=== PATIENT | female | born 1980 | race Caucasian/White ===

== ENCOUNTER 2023-03-13 01:11 | Emergency (ER) | payer OTHER, SELFPAY ==
--- NOTE | ~2023-03-13 | XR_ITS ---
EXAMINATION: XR KNEE, RIGHT CLINICAL INFORMATION: Pain. COMPARISON: None available. TECHNIQUE: Four views of the right knee. FINDINGS: The bone mineralization is normal. There is mild to moderate medial and mild lateral degenerative change with loss of joint space, subchondral sclerosis and osteophyte formation. There is no fracture. There is no joint effusion. The soft tissues are unremarkable. XR/XR knee RT 4V IMPRESSION: Mild to moderate medial and mild lateral knee degenerative change. No acute osseous abnormality.
[2023-03-13 01:12] VITALS: BP 136/85; PULSE 80; RESP 16; TEMP 36.4; O2SAT 100; BMI 46.6
[2023-03-13 01:33] VITALS: BP 128/78; PULSE 87; RESP 15; TEMP 36.7; O2SAT 100
--- NOTE | 2023-03-13 01:41 | ED_ITS ---
HPI - Extremity Problem General Chief complaint: Extremity Injury, Lower Stated complaint: Right knee pain Time Seen by Provider: 03/13/23 01:39 Source: patient Mode of arrival: ambulatory Limitations: no limitations History of Present Illness HPI Narrative: Patient obese no history of arthritis noticed pain in the right knee for last 3 days no trauma no significant swelling no other joint involvement no fever or chills Related Data Previous Rx's Medication Instructions Recorded oxycodone-acetaminophen 5 mg-325 1 tab PO Q6H PRN pain #20 tabs 03/13/23 mg tablet (Percocet) Allergies Allergy/AdvReac Type Severity Reaction Status Date / Time codeine [CODEINE] Allergy Unknown RASH Verified 03/13/23 01:52 tramadol AdvReac Anxiety Verified 03/13/23 01:52 From VICODIN Allergy Unknown ANXIETY Uncoded 03/13/23 01:52 Review of Systems 2 Review of Systems: Yes all other systems are reviewed and are negative PMFSH Social History Social History Alcohol intake: never Smoked in Last 30 Days: No Use of substances other than those prescribed or required for medical reasons: No Any prior treatment program specific to substance use: No Advance Directives: No Advance Directives Information Provided: No Patient : No Physical Exam 2 Vital Signs: Vital Signs: Last Vital Signs Temp 98.0 F 03/13/23 01:33 Pulse 87 03/13/23 01:33 Resp 15 03/13/23 01:33 BP 128/78 03/13/23 01:33 Pulse Ox 100 03/13/23 01:33 O2 Del Method Room Air 03/13/23 01:33 BMI result Body Mass Index 46.6 Extrem: Knee images: 1. Diffuse tenderness with mild effusion anterior drawer sign negative Jorge sign negative good range of movement Medications Administered Discontinued Medications Generic Name Dose Route Start Last Admin Trade Name Freq PRN Reason Stop Dose Admin Oxycodone HCl 10 mg 03/13/23 01:48 03/13/23 02:02 Oxycodone Hcl Immed Release 5 Mg Tablet PO 03/13/23 01:49 10 mg ONCE ONE Administration Medical Decision Making Differential Diagnosis Differential Diagnoses: The differential diagnosis associated with the presentation includes Arthritis/internal derangement of right knee Independent Interpretation I performed an independent interpretation of an: Plain X-Ray Radiology Impression Discussion of test interpretation with radiology: I have reviewed the radiologist's reading. Discharge Plan Discharge Clinical Impression: Strain of right knee Patient Disposition: Home, Self-Care Instructions: Knee Pain (ED) Additional Instructions: PARAS wrap for support Oxycodone for pain Avoid going on stairs Follow with PCP if not better Prescriptions: New oxycodone-acetaminophen [Percocet] 5-325 mg tablet 1 tab PO Q6H PRN (Reason: pain) Qty: 20 0RF Rx Instructions: Partial Fill upon patient request. Interventions: ED Discharge Assessment Last Done: 03/13/23 02:17 Discharge Date/Time: 03/13/23 02:00
[2023-03-13] MEDS: oxyCODONE HCl Immed Release 5 MG TABLET 10 MG PO (02:02)
== END 2023-03-13 02:00 | disposition home or self-care (01) ==
LOC: HO.ED 01:57
PROVIDERS: Emergency Provider Internal Medicine
DX: S86.111A Strain of other muscle(s) and tendon(s) of posterior muscle group at lower leg level, right leg, initial encounter (principal); X58.XXXA Exposure to other specified factors, initial encounter; Y93.9 Activity, unspecified; Y92.9 Unspecified place or not applicable; Y99.9 Unspecified external cause status
CPT/HCPCS: 73564; 99283; 99284

== ENCOUNTER 2023-04-03 21:40 | Emergency (ER) | payer OTHER, SELFPAY ==
--- NOTE | ~2023-04-03 | XR_ITS ---
EXAMINATION: XR KNEE, RIGHT CLINICAL INFORMATION: Pain, fall. COMPARISON: Radiograph right knee 03/13/2023. TECHNIQUE: Four views of the right knee. FINDINGS: No acute fracture or subluxation. Mild tricompartmental degenerative changes with joint space narrowing, subcortical sclerosis and small marginal osteophytes. No chondrocalcinosis. Small joint effusion, new compared to 03/13/2023. XR/XR knee RT 2V IMPRESSION: 1. No acute fracture or subluxation. 2. Mild tricompartmental degenerative changes. 3. New small joint effusion.
[2023-04-03 21:56] VITALS: BP 151/102; PULSE 76; RESP 18; TEMP 36.3; O2SAT 100; BMI 49.9
[2023-04-03 22:24] VITALS: BP 149/82; PULSE 80; RESP 18; O2SAT 100
--- NOTE | 2023-04-03 22:26 | ED.LOWEXIN ---
HPI - Extremity Injury (Lower) General Chief Complaint: Extremity Injury, Lower Stated Complaint: R knee pain, fall 2 days ago Time Seen by Provider: 04/03/23 22:25 Source: patient Mode of arrival: ambulatory Limitations: no limitations History of Present Illness HPI Narrative: patient with History of osteoarthritis obliterated tripped and fell on stairs about 4 steps 2 days ago since then complaining of pain in the right knee more than usual able to ambulate has some slight swelling no other injuries Related Data Previous Rx's Medication Instructions Recorded oxycodone-acetaminophen 5 mg-325 1 tab PO Q6H PRN pain #20 tabs 03/13/23 mg tablet (Percocet) oxycodone 5 mg tablet 5 mg PO Q6H PRN pain #30 tabs 04/03/23 Allergies Allergy/AdvReac Type Severity Reaction Status Date / Time codeine [CODEINE] Allergy Unknown RASH Verified 04/03/23 21:56 tramadol AdvReac Anxiety Verified 04/03/23 21:56 From VICODIN Allergy Unknown ANXIETY Uncoded 03/13/23 01:52 Review of Systems Review of Systems: Yes all other systems are reviewed and are negative [facility] Social History Social History Alcohol intake: never Advance Directives: No Advance Directives Information Provided: No Physical Exam Vital Signs: Vital Signs: Last Vital Signs Temp 97.4 F 04/03/23 21:56 Pulse 80 04/03/23 22:24 Resp 18 04/03/23 22:24 BP 149/82 H 04/03/23 22:24 Pulse Ox 100 04/03/23 22:24 O2 Del Method Room Air 04/03/23 22:24 BMI result Body Mass Index 49.9 Appearance: Alert. Oriented X3. No acute distress. Neck: Normal inspection. Neck supple. CVS: Normal heart rate and rhythm. Pulses normal. Respiratory: No respiratory distress. Equal air entry bilateral, Abdomen: Soft and nontender. Bowel sounds are present, Skin: Skin warm and dry. Normal skin color. Normal skin turgor. Extremities: No lower extremity edema. No calf tenderness right knee diffuse tenderness minimal effusion Jorge's sign , anterior drawer sign negative able to ambulate with slight pain Neuro: Oriented X 3. No motor deficit. Medications Administered Discontinued Medications Generic Name Dose Route Start Last Admin Trade Name Freq PRN Reason Stop Dose Admin Oxycodone HCl 10 mg 04/03/23 22:49 04/03/23 22:53 Oxycodone Hcl Immed Release 5 Mg Tablet PO 04/03/23 22:50 10 mg ONCE ONE Administration Medical Decision Making Medical Decision Making [facility] Narrative: Patient with osteoarthritis the right knee x-ray negative for any fracture , minimal effusion is wrap was applied discharge patient home on pain medication Differential Diagnosis Differential Diagnoses: The differential diagnosis associated with the presentation includes Fracture/meniscal tear/ACL tear Independent Interpretation I performed an independent interpretation of an: Plain X-Ray Radiology Impression Discussion of test interpretation with radiology: I have reviewed the radiologist's reading. Discharge Plan Discharge Clinical Impression: Strain of right knee Patient Disposition: Home, Self-Care Instructions: Knee Pain (ED) Additional Instructions: Wear the [place] wrap for support Pain medication as prescribed Follow with PCP if not better Prescriptions: New oxycodone 5 mg tablet 5 mg PO Q6H PRN (Reason: pain) Qty: 30 0RF Rx Instructions: Partial Fill upon patient request. No Action oxycodone-acetaminophen [Percocet] 5-325 mg tablet 1 tab PO Q6H PRN (Reason: pain) Qty: 20 0RF Rx Instructions: Partial Fill upon patient request. Interventions: ED Discharge Assessment Last Done: 04/03/23 23:44 Discharge Date/Time: 04/03/23 23:44
[2023-04-03] MEDS: oxyCODONE HCl Immed Release 5 MG TABLET 10 MG PO (22:53)
== END 2023-04-03 23:44 | disposition home or self-care (01) ==
PROVIDERS: Emergency Provider Internal Medicine; PCP Physician Assistant Medical
DX: S86.111A Strain of other muscle(s) and tendon(s) of posterior muscle group at lower leg level, right leg, initial encounter (principal); W17.89XA Other fall from one level to another, initial encounter; Y93.89 Activity, other specified; Y92.9 Unspecified place or not applicable; Y99.9 Unspecified external cause status
CPT/HCPCS: 73560; 99283; 99284

== ENCOUNTER 2023-08-22 00:40 | Emergency (ER) | payer OTHER, SELFPAY ==
[2023-08-22 00:42] VITALS: BP 175/102; PULSE 75; O2SAT 99
[2023-08-22 00:46] VITALS: BP 178/72; PULSE 68; RESP 18; TEMP 36.8; O2SAT 98; BMI 49.8
[2023-08-22 00:59] LABS: MANUAL DIFF FLAG NO
[2023-08-22 01:00] LABS: Basophils Percent Auto 0.5 % (0-2); Eosinophils Absolute Auto 0.2 X10*3/uL (0.0-0.4); Eosinophils Percent Auto 2.2 % (0-4); Hematocrit 35.7 % (37.0-47.0); Hemoglobin 11.9 g/dl (12.0-16.0); Imm Gran Abs Auto 0.02 X10*3/uL (0.00-0.03); Imm Gran Pct Auto 0.2 % (0.0-0.4); Lymphocytes Percent Auto 23.1 % (20-40); Mean Corpuscular HGB Conc 33.3 g/dl (31.0-35.0); Mean Corpuscular Hemoglobin 27.5 pg (27.0-33.0); Mean Corpuscular Volume 82.6 fL (80.0-98.0); Mean Platelet Volume 9.3 fL (9.4-12.3); Monocytes Absolute Auto 0.5 X10*3/uL (0.1-1.2); Monocytes Percent Auto 5.6 % (2-11); Neutrophils Absolute Auto 5.8 x10*3/uL (2.0-8.3); Neutrophils Percent Auto 68.4 % (45-73); Platelet Count 188 X10*3/uL (160-400); Red Blood Count 4.32 X10*6/uL (4.20-5.50); Red Cell Distribution Width 13.2 % (11.0-16.0); White Blood Count 8.5 X10*3/uL (4.8-10.8)
[2023-08-22 01:23] LABS: Anion Gap 12 (12-20); Blood Urea Nitrogen 22 mg/dL (9-16); Calcium 9.5 mg/dL (8.4-10.2); Carbon Dioxide 24 mmol/L (22-29); Chloride 107 mmol/L (96-108); Creatinine Clr Calc Pharmacy 119.1; Estimated Glomerular Filt Rate > 60; Glucose Random 110 mg/dL (60-115); Potassium 3.5 mmol/L (3.3-5.1); Sodium 139 mmol/L (135-145)
[2023-08-22 01:27] LABS: HCG Quantitative < 2 mIU/mL
[2023-08-22 01:49] LABS: Appearance Urine Clear; Color Urine Yellow; Glucose Urine UA Negative (Negative); Leukocyte Esterase Urine Trace (Negative); Nitrite Urine Negative (Negative); PH 5.5 (5.0-9.0); Specific Gravity - Urine >= 1.030 (1.005-1.025); UMIC TRIGGER UACC YES; Urine Blood Negative (Negative); Urine Ketones Trace mg/dL (Negative); Urine Protein Trace mg/dL (Neg-Trace)
[2023-08-22 01:52] LABS: Bacteria Urine None Seen (None Seen); Hyaline Casts Urine 0-2 /LPF (0-2); RBC Urine 0-2 /HPF (0-2); WBC Urine 0-5 /HPF (0-5)
[2023-08-22 02:00] VITALS: BP 135/69; PULSE 65; RESP 16; TEMP 36.9; O2SAT 98
--- NOTE | 2023-08-22 02:56 | ED_ITS ---
HPI - Female Genitourinary General Chief complaint: Urogenital-Female Stated complaint: back/flank pain Time Seen by Provider: 08/22/23 02:56 Source: patient Mode of arrival: ambulatory Limitations: no limitations History of Present Illness HPI Narrative: 42-year-old female who presents emergency department for evaluation of left lower back pain. She states she woke up with the pain yesterday morning around 08:00 hours. She states the pain lasted all day long. The pain was worse with movement with breathing. She describes the pain is a sharp constant pain which is 8/10 at its worst. She did take Motrin at home with no relief for pain. The patient denied fever, chills, frequency, urgency, dysuria. She has not noted any hematuria. This is a 1st episode of this type of pain. Related Data Previous Rx's ?Medication ?Instructions ?Recorded oxycodone-acetaminophen 5 mg-325 1 tab PO Q6H PRN pain #20 tabs 03/13/23 mg tablet (Percocet) oxycodone 5 mg tablet 5 mg PO Q6H PRN pain #30 tabs 04/03/23 cyclobenzaprine 10 mg tablet 10 mg PO TID PRN muscle pain or 08/22/23 spasm #20 tabs Allergies Allergy/AdvReac Type Severity Reaction Status Date / Time codeine [CODEINE] Allergy Unknown RASH Verified 08/22/23 00:48 tramadol AdvReac Anxiety Verified 08/22/23 00:48 From VICODIN Allergy Unknown ANXIETY Uncoded 08/22/23 00:48 Review of Systems 2 Review of Systems: Yes all other systems are reviewed and are negative [facility] Past Medical History [facility] Narrative: Social history: She denies tobacco, alcohol and drug use. Social History Social History Alcohol intake: never Advance Directives: No Advance Directives Information Provided: No Physical Exam 2 Vital Signs: Vital Signs: Last Vital Signs Temp 98.4 F 08/22/23 02:00 Pulse 65 08/22/23 02:00 Resp 16 08/22/23 02:00 BP 135/69 08/22/23 02:00 Pulse Ox 98 08/22/23 02:00 O2 Del Method Room Air 08/22/23 02:00 BMI result Body Mass Index 49.8 Vital signs were normal Exam: General: Awake, alert in no distress Head: Normocephalic, atraumatic EENT: PERRL, Lids normal, sclera normal, conjunctiva normal, nose normal , ears normal, throat without erythema or exudates Neck: Supple, no adenopathy Lung: breath sounds symmetric, no wheezing, rales or rhonchi Chest: symmetric movement, nontender Heart: regular rate and rhythm, normal S1, S2 no murmurs or rubs Abdomen: soft, non-tender, nondistended, normal bowel sounds Back: no vertebral tenderness, patient does have pain and spasm with palpation of her left paraspinal muscles in the lumbar area, there is no increased warmth or lesions noted in this area Extremities: no deformities, moves all extremities symmetrically Neuro: Awake, alert, oriented, normal speech, cranial nerves intact, moves all extremities symmetrically Psych: Pleasant, cooperative Medical Decision Making Medical Decision Making [facility] Narrative: 42-year-old female who presents emergency department for evaluation of left sided back pain which began yesterday morning at 08:00 hours, patient does not recall any injury. The pain is worse with movement and with breathing. Patient had no concerning systemic symptoms. Patient had initial elevated blood pressure which improved with our treatment. Physical examination did reveal tenderness palpation of her left lumbar paraspinal muscles with spasm of these muscles. Differential diagnosis: ?Includes but is not limited to musculoskeletal injury, musculoskeletal spasm, renal colic, ureteral colic, electrolyte abnormalities, anemia Following evaluation was ordered: CBC, CMP, urinalysis, quantitative beta-hCG Patient was initially treated with the following: Ibuprofen 400 mg orally, Flexeril 10 mg orally Course: 03:19 My interpretation patient's laboratory evaluation is as follows: Anemia with an H&H 11.9 and 35.7. CMP was normal. Urinalysis was positive for leukocyte esterase. Microscopic revealed 0 RBCs, 0 WBCs, no bacteria Patient's presentation physical finding laboratory evaluation is consistent with lumbar back sprain with spasm. Patient was advised to take Tylenol and ibuprofen for pain. She was also prescribed Flexeril for muscle spasm. She was given printed and verbal instructions discharged home. Admission/Observation Consideration of admission/observation: Escalation of care including admission/observation considered Lab Data [facility] Lab Attestation statement: I reviewed the patient's lab results. 08/22/23 00:56 08/22/23 00:55 Labs: Lab Results 08/22/23 08/22/23 08/22/23 Range/Units 00:55 00:56 01:43 WBC 8.5 (4.8-10.8) X10*3/uL RBC 4.32 (4.20-5.50) X10*6/uL Hgb 11.9 L (12.0-16.0) g/dl Hct 35.7 L (37.0-47.0) % MCV 82.6 (80.0-98.0) fL MCH 27.5 (27.0-33.0) pg MCHC 33.3 (31.0-35.0) g/dl RDW 13.2 (11.0-16.0) % Plt Count 188 (160-400) X10*3/uL MPV 9.3 L (9.4-12.3) fL Immature Gran % (Auto) 0.2 (0.0-0.4) % Neut % (Auto) 68.4 (45-73) % Lymph % (Auto) 23.1 (20-40) % Dawes % (Auto) 5.6 (2-11) % Eos % (Auto) 2.2 (0-4) % Baso % (Auto) 0.5 (0-2) % Lymph # (Auto) 2.0 (1.2-4.9) X10*3/uL Dawes # (Auto) 0.5 (0.1-1.2) X10*3/uL Eos # (Auto) 0.2 (0.0-0.4) X10*3/uL Baso # (Auto) 0.0 (0.0-0.2) X10*3/uL Abs Immat Gran (auto) 0.02 (0.00-0.03) X10*3/uL Absolute Neuts (auto) 5.8 (2.0-8.3) x10*3/uL Absolute Nucleated RBC 0.000 (0.0-0.012) X10*3/uL Nucleated RBC % (auto) 0.0 (0.0-0.2) /100WBC Sodium 139 (135-145) mmol/L Potassium 3.5 (3.3-5.1) mmol/L Chloride 107 (96-108) mmol/L Carbon Dioxide 24 (22-29) mmol/L Anion Gap 12 (12-20) BUN 22 H (9-16) mg/dL Creatinine 0.85 (0.5-1.4) mg/dL Estim Creat Clear Calc 119.1 Estimated GFR > 60 Random Glucose 110 (60-115) mg/dL Calcium 9.5 (8.4-10.2) mg/dL Beta HCG, Quant < 2 mIU/mL Urine Color Yellow Urine Appearance Clear Urine pH 5.5 (5.0-9.0) Ur Specific [place] >= 1.030 H (1.005-1.025) Urine Protein Trace (Neg-Trace) mg/dL Urine Glucose (UA) Negative (Negative) mg/dL Urine Ketones Trace (Negative) mg/dL Urine Blood Negative (Negative) Urine Nitrite Negative (Negative) Ur Leukocyte Esterase Trace H (Negative) Urine RBC 0-2 (0-2) /HPF Urine WBC 0-5 (0-5) /HPF Ur Squamous Epith Cells 6-10 (0-2) /HPF Urine Bacteria None Seen (None Seen) Hyaline Casts 0-2 (0-2) /LPF Prescription Management I considered prescription management with: Other (Anti spasm medication- Flexeril) Discharge Plan Discharge Clinical Impression: Lumbar paraspinal muscle spasm Patient Disposition: Home, Self-Care Instructions: Acute Low Back Pain (ED) Additional Instructions: Your blood work revealed that you had some slight anemia but otherwise was unremarkable. Your urinalysis was negative for infection, there was no white blood cells, red blood cells or bacteria in your urine which is reassuring. Your exam did reveal significant tenderness with palpation of the muscles of your lower back with spasm of these muscles as well. Take ibuprofen 200 mg pills, 2 pills every 6 hours as needed for pain or fever. Take Tylenol (acetaminophen) 500 mg pills, 2 pills every 6 hours as needed for pain or fever. Take Flexeril (cyclobenzaprine) 10 mg pills, 1 pill every 6-8 hours as needed for pain or spasm. ?This medication will make you sleepy. ?Do not drive or work while taking this medication. Follow-up with your doctor in 2 days. Please return to the emergency department if your symptoms get worse or if you develop any symptoms that are concerning to you. Prescriptions: New cyclobenzaprine 10 mg tablet 10 mg PO TID PRN (Reason: muscle pain or spasm) Qty: 20 0RF No Action oxycodone-acetaminophen [Percocet] 5-325 mg tablet 1 tab PO Q6H PRN (Reason: pain) Qty: 20 0RF Rx Instructions: Partial Fill upon patient request. oxycodone 5 mg tablet 5 mg PO Q6H PRN (Reason: pain) Qty: 30 0RF Rx Instructions: Partial Fill upon patient request. Print Language: Zimbabwean
[2023-08-22] MEDS: Cyclobenzaprine HCl 10 MG TABLET PO (03:23)
[2023-08-22] MEDS: Ibuprofen 400 MG TABLET PO (03:23)
[2023-08-22 03:28] VITALS: BP 132/68; PULSE 66; RESP 16; TEMP 36.8; O2SAT 98
== END 2023-08-22 03:28 | disposition home or self-care (01) ==
PROVIDERS: Emergency Provider Emergency Medicine Emergency Medical Services
DX: M62.830 Muscle spasm of back (principal); M54.50 Low back pain, unspecified; Z79.899 Other long term (current) drug therapy
CPT/HCPCS: 36415; 80048; 81001; 84702; 85025; 99283; 99284

== ENCOUNTER 2023-10-02 00:35 | Emergency (ER) | payer OTHER, SELFPAY ==
--- NOTE | ~2023-10-02 | XR_ITS ---
EXAMINATION: XR ANKLE, RIGHT XR FOOT, RIGHT CLINICAL INDICATION: Pain COMPARISON: None TECHNIQUE: 3 views of the right ankle. 3 views of the right foot. FINDINGS: Osseous alignment throughout the ankle and foot is anatomic. No acute fracture is seen. Plantar calcaneal spur is present. There is soft tissue swelling at the ankle. XR/XR foot RT min 3V IMPRESSION: No acute osseous findings identified in the right ankle or foot. Soft tissue swelling at the ankle.
--- NOTE | ~2023-10-02 | XR_ITS ---
EXAMINATION: XR ANKLE, RIGHT XR FOOT, RIGHT CLINICAL INDICATION: Pain COMPARISON: None TECHNIQUE: 3 views of the right ankle. 3 views of the right foot. FINDINGS: Osseous alignment throughout the ankle and foot is anatomic. No acute fracture is seen. Plantar calcaneal spur is present. There is soft tissue swelling at the ankle. XR/XR ankle RT min 3V IMPRESSION: No acute osseous findings identified in the right ankle or foot. Soft tissue swelling at the ankle.
[2023-10-02 00:47] VITALS: BP 143/90; PULSE 80; O2SAT 99
[2023-10-02 00:54] VITALS: BP 150/86; PULSE 91; RESP 16; O2SAT 98
[2023-10-02 00:57] VITALS: BMI 46.6
--- NOTE | 2023-10-02 01:00 | ED.LOWEXIN ---
HPI - Extremity Injury (Lower) General Chief Complaint: Extremity Injury, Lower Stated Complaint: right ankle foot pain Time Seen by Provider: 10/02/23 00:42 History of Present Illness HPI Narrative: Patient is a 42-year-old female presents today with having right ankle pain. Right foot pain. Attempted to take [id number] medication but to no avail. Denies any trauma. But does walk a lot. Complaining of pain that is worse with walking. No systemic complaints no significant knee pain no calf tenderness no pain in the hips. No chest pain or shortness breath currently on no medication no history of blood clots. No travel Related Data Previous Rx's ?Medication ?Instructions ?Recorded oxycodone-acetaminophen 5 mg-325 1 tab PO Q6H PRN pain #20 tabs 03/13/23 mg tablet (Percocet) oxycodone 5 mg tablet 5 mg PO Q6H PRN pain #30 tabs 04/03/23 cyclobenzaprine 10 mg tablet 10 mg PO TID PRN muscle pain or 08/22/23 spasm #20 tabs ibuprofen 400 mg tablet 400 mg PO Q6H PRN pain #20 tabs 10/02/23 Allergies Allergy/AdvReac Type Severity Reaction Status Date / Time codeine [CODEINE] Allergy Unknown RASH Verified 10/02/23 00:58 tramadol AdvReac Anxiety Verified 10/02/23 00:58 From VICODIN Allergy Unknown ANXIETY Uncoded 10/02/23 00:58 Review of Systems Review of Systems: Positive pain to the right ankle right foot Yes all other systems are reviewed and are negative [facility] Past Medical History Attestation statement: The following information was validated with the patient. Social History Social History Alcohol intake: never Advance Directives: No Advance Directives Information Provided: Yes Do you have a plan to hurt others: No Plan Physical Exam Vital Signs: Vital Signs: Last Vital Signs Pulse 91 10/02/23 00:54 Resp 16 10/02/23 00:54 BP 150/86 H 10/02/23 00:54 Pulse Ox 98 10/02/23 00:54 O2 Del Method Room Air 10/02/23 00:54 BMI result Body Mass Index 46.6 Appearance: Alert. Oriented X3. No acute distress. Eyes: Pupils equal, round and reactive to light. ENT: Pharynx normal. Neck: Normal inspection. Neck supple. No lymph nodes noted. No crepitus CVS: Normal heart rate and rhythm. Pulses normal. Normal S1 and S2 Respiratory: No respiratory distress. Breath sounds normal. No Wheezing. No rales Abdomen: Soft and nontender. No rigidity. No distention. good BS x4 Skin: Skin warm and dry. Normal skin color. Normal skin turgor. Extremities: No lower extremity edema. Neurovascular intact to all extremities. No Lacerations. No Rash. Mild pain on palpation of the right lateral malleolus. Distal pulses intact at dorsalis pedis. Pain at the base of the 5th metatarsal. There is no gross deformities noted. Neuro: Oriented X 3. No motor deficit. No sensory deficit. Moving all extermities. No slurred speech Medications Administered Discontinued Medications Generic Name Dose Route Start Last Admin Trade Name Freq PRN Reason Stop Dose Admin Acetaminophen 975 mg 10/02/23 03:28 10/02/23 03:33 Acetaminophen 325 Mg Tablet PO 10/02/23 03:29 975 mg ONCE ONE Administration Medical Decision Making Medical Decision Making [facility] Narrative: X-ray of the ankle and foot were both grossly negative for acute evidence of fracture. Question sprain. Will have patient follow-up with orthopedics on an outpatient basis. There is no fever no chills no redness no warmth on palpation there is no evidence of gross joint effusion. Patient has no fever no chills. History not consistent with having a septic joint. Will discharge patient home on Motrin. Close follow-up with orthopedics on an outpatient basis Differential Diagnosis Differential Diagnoses: The differential diagnosis associated with the presentation includes Arthritis, fracture, sprain Admission/Observation Consideration of admission/observation: Escalation of care including admission/observation considered Lab Data [facility] Lab Attestation statement: I reviewed the patient's lab results. Independent Interpretation I performed an independent interpretation of an: Plain X-Ray (X-ray of the foot and ankle are negative) Radiology Impression Discussion of test interpretation with radiology: I have reviewed the radiologist's reading. Prescription Management I considered prescription management with: Antibiotic (Not needed) Discharge Plan Discharge Clinical Impression: Ankle sprain and strain Patient Disposition: Home, Self-Care Instructions: Ankle Sprain (DC) Prescriptions: New ibuprofen 400 mg tablet 400 mg PO Q6H PRN (Reason: pain) Qty: 20 0RF No Action oxycodone-acetaminophen [Percocet] 5-325 mg tablet 1 tab PO Q6H PRN (Reason: pain) Qty: 20 0RF Rx Instructions: Partial Fill upon patient request. oxycodone 5 mg tablet 5 mg PO Q6H PRN (Reason: pain) Qty: 30 0RF Rx Instructions: Partial Fill upon patient request. cyclobenzaprine 10 mg tablet 10 mg PO TID PRN (Reason: muscle pain or spasm) Qty: 20 0RF Referrals: Lexa Roche MD [Primary Care Provider] - 10/05/23 Juan Russ MD [Physician] - 10/04/23 Print Language: Australian
--- OUTSIDE RECORDS SUMMARY | 2023-10-02 01:34 | XMS_ITS | Continuity of Care Document ---
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 Name Role Phone Deya Miner Primary Care Physician [phone] [place] [facility] Date(s): 07/20/20 - 08/25/[address] [address] Attending Physician: Petey Rodas MD Admitting Physician: Petey Rodas MD Referring Physician: Petey Rodas MD Allergies, Adverse Reactions, Alerts Substance Reaction Severity Status codeine Family history of anxiety disorder Active Vicodin Rash Active traMADol Active Immunizations Given and Recorded Vaccine Date Status Refusal Reason influenza virus vaccine, inactivated 02/27/09 Give n Medications NuLYTELY with Flavor Packs oral powder for reconstitution 240 mL, By Mouth, Daily, drink 1/2 prep at 5pm day before procedure, drink the rest 6 hrs before procedure, # 4,000 mL, 0 Refills, Maintenance, 03/26/20 8:23:00 EST, REC Powder, [facility] #[id number], Partial fill upon patient request, 240 mL By... Start Date: 03/26/20 Status: Ordered Plenvu oral powder for reconstitution See Instructions, drink every 15-30 minutes until finished., # 4,000 mL, 0 Refills, Maintenance, 03/26/20 8:23:00 EST, [facility] #[id number], Partial fill upon patient request, drink every 15-30 minutes until finished., 165, cm, 02/08/20 9:31:00... Start Date: 03/26/20 Status: Ordered rOPINIRole 0.25 mg oral tablet 0 Refills, Maintenance, 12/01/18 7:46:23 EDT Start Date: 12/01/18 Status: Ordered Soma 350 mg oral tablet 350 mg, 1, tablet, By Mouth, 3 times a day, Refills 0, Maintenance, 04/07/17 10:54:04 Start Date: 04/07/17 Status: Ordered Suprep Bowel Prep Kit oral liquid See Instructions, Complete on day before the procedure., # 354 mL, 0 Refills, Maintenance, 02/07/2010:19:00 EDT, [facility] #[id number], Complete on day before the procedure., 165, cm, :31:00 EDT, Height, 100, kg, 01/25/20 18:19:00 EDT... Start Date: 02/08/20 Status: Ordered Zofran 4 mg oral tablet 1 tablet = 4 mg, By Mouth, Every 6 hours, # 20 tablet, 0 Refills, Maintenance, 02/08/20 10:19:00 EDT, [facility] #[id number], 165, cm, 02/08/20 9:31:00 EDT, Height, 100, kg, 01/25/20 18:19:00 EDT, Dry Weight Start Date: 02/08/20 Stop Date: 02/13/20 Status: Ordered Zofran 4 mg oral tablet 1 tablet = 4 mg, By Mouth, Every 8 hours, # 12 tablet, 0 Refills, Maintenance, 04/19/20 12:15:00 EST, Tablet, [facility] #[id number], Partial fill upon patient request if the prescription is fora schedule II opioid drug., 165, cm, 04/19/20 10:13... Start Date: 04/19/20 Status: Ordered Problem List Condition Effective Dates Status Health Status Inform ant Anxiety(Confirmed) Active Body mass index 30+ - obesity(Confirmed) Active Depression(Confirmed) Active DM (diabetes mellitus)(Confirmed) Active Drug-induced constipation(Confirmed) Active Mechanical low back pain(Confirmed) Active Neck pain(Confirmed) Active Not getting enough sleep(Confirmed) Active Recurrent urinary tract infection(Confirmed) Active Social History Social History Type Response Smoking Status Never (less than 100 in lifetime) entered on: 04/19/20 Sex
--- OUTSIDE RECORDS SUMMARY | 2023-10-02 01:34 | XMS_ITS | Continuity of Care Document ---
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 Name Role Phone Lexa Roche MD Primary Care Physician Encounter [facility] Date(s): 07/18/19 - 07/28/19 [facility] [address] [place] [address]- [facility] Attending Physician: Carlos Hays Admitting Physician: AdmtrCarlos Referring Physician: Admtr Ar8 Allergies, Adverse Reactions, Alerts Substance Reaction Severity Status codeine Family history of anxiety disorder Active Vicodin Rash Active traMADol Active Immunizations Given and Recorded Vaccine Date Status Refusal Reason influenza virus vaccine, inactivated 02/27/09 Give n Medications acetaminophen/butalbital/caffeine 325 mg-50 mg-40 mg oral tablet 0 Refills, Maintenance, 12/01/18 7:46:26 EDT Start Date: 12/01/18 Status: Ordered Colace sodium 100 mg oral capsule 100 mg, 1, capsule, By Mouth, 2 times a day, PRN, with plenty of water, # 20 capsule, Refills 0, Tot. Refills 0, Maintenance, for constipation, 08/05/18 23:05:43 EDT, Print Requisition Start Date: 08/05/18 Stop Date: 08/15/18 Status: Ordered gabapentin 300 mg oral capsule 300 mg, 1, capsule, By Mouth, 3 times a day, # 30 capsule, Refills 0, Tot. Refills 0, Maintenance, 03/03/19 23:54:32 EDT, Print Requisition Start Date: 03/03/19 Status: Ordered Isibloom 0.15 mg-0.03 mg oral tablet 1 tablet, By Mouth, Daily Start Date: 08/05/18 Status: Ordered montelukast 10 mg oral tablet 10 mg, 1, tablet, By Mouth, Daily Start Date: 08/05/18 Status: Ordered rOPINIRole 0.25 mg oral tablet 0 Refills, Maintenance, 12/01/18 7:46:23 EDT Start Date: 12/01/18 Status: Ordered Soma 350 mg oral tablet 350 mg, 1, tablet, By Mouth, 3 times a day, Refills 0, Maintenance, 04/07/17 10:54:04 Start Date: 04/07/17 Status: Ordered Vestibular therapy Vestibular therapy, See Instructions, # 1 each, Refills 0, Tot. Refills 0, Maintenance, evaluation for vstibular therapy for possible BPPV, 05/25/18 10:00:12 EST, Compound Start Date: 05/25/18 Status: Ordered Zofran 4 mg oral tablet 1 tablet = 4 mg, By Mouth, Every 8 hours, PRN Nausea & Vomiting, # 10 tablet, 0 Refills, Maintenance, 09/14/18 19:45:21 EDT, Tablet Start Date: 09/14/18 Status: Ordered Zofran 4 mg oral tablet 1 tablet = 4 mg, By Mouth, Every 8 hours, PRN as needed for nausea/vomiting, # 9 tablet, 0 Refills,Maintenance, 03/21/19 12:22:38 EST, Tablet Start Date: 03/21/19 Stop Date: 03/24/19 Status: Ordered Problem List Condition Effective Dates [...] (less than 100 in lifetime) entered on: 11/19/18 Sex
--- OUTSIDE RECORDS SUMMARY | 2023-10-02 01:34 | XMS_ITS | Continuity of Care Document ---
Author Organization [facility] ter Address [address] [place] [address]- Care Team Providers Care Shampoo Person Name Role Phone Deya Miner Primary Care Physician [phone] [place] [facility] [place] 01/29/23 - 03/13/[address] [address] Attending Physician: Marine GILLIAM MD (Surgeon), [place] Admitting Physician: Marine GILLIAM MD (Surgeon), [place] Referring Physician: Marine GILLIAM MD (Surgeon), [place] Allergies, Adverse Reactions, Alerts Substance Reaction Severity Status codeine Family history of anxiety disorder Active Vicodin Rash Active traMADol Active Immunizations Given and Recorded Vaccine Date Status Refusal Reason influenza virus vaccine, inactivated 02/27/09 Give n Medications cyclobenzaprine 5 mg oral tablet 1 tablet = 5 mg, By Mouth, 3 times a day, PRN Spasm, for 7 days, DO NOT DRIVE OR OPERATE MACHINERY ON THIS MEDICATION IT MAY MAKE YOU DROWSY., # 21 tablet, 0 Refills, Acute 03/19/23 2:05:00 EST, 03/12/23 2:05:00 EST, Tablet, [id number], [place]... Start Date: 03/12/23 Stop Date: 03/19/23 Status: Ordered Problem List Condition Confirmation Course Effective Dates Status Health St atus Informant Anxiety Confirmed Active Body mass index 30+ - obesity Confirmed Active Depression Confirmed Active DM (diabetes mellitus) Confirmed Active Drug-induced constipation Confirmed Active Mechanical low back pain Confirmed Active Neck pain Confirmed Active Not getting enough sleep Confirmed Active Recurrent urinary tract infection Confirmed Active Severe obesity Confirmed Active Social History Social History Type Response Smoking Status Never (less than 100 in lifetime) entered on: 04/19/20 Sex Patient Care team information Care Team Personnel Name: Tran Lopez RN Position: [facility] RN Member Role: Primary Care Nurse Name: Rosalia Holcomb RN Position: [facility] RN Member Role: Primary Care Nurse Name: Kathie Baldwin NP Position: [facility] PCO Associate Professional Member Role: Primary Care Nurse Address: Address: [address], [place] [address]- Name: Anne Arriaga RN Position: [facility] RN Member Role: Primary Care Nurse Name: Hina Peng RN Position: [facility] RN Member Role: Primary Care Nurse Name: Deya Miner Position: [facility] Outreach Member Role: PCP Address: Address: [address] [place] [address] [address] [place] [address]- Care Team Related Persons Name: CONCHITA HOYOS Address: home [address] [place] [address] Name: LONNIE KULKARNI Address: [place] [address]
--- OUTSIDE RECORDS SUMMARY | 2023-10-02 01:34 | XMS_ITS | Continuity of Care Document ---
Author Organization [facility] ter Address [address] [place] [address]- Care Team Providers Care Lobbyist Name Role Phone Lexa Roche MD Primary Care Physician Encounter [facility] Date(s): 11/12/19 - 11/13/[address] [address]- [facility] Encounter Diagnosis Near syncope(Final) - 11/13/19 Discharge Disposition: A-D/C Home Attending Physician: Emmanuel Neely MD Admitting Physician: Emmanuel Neely MD Referring Physician: Not on Staff, Referring MD Allergies, Adverse Reactions, Alerts Substance Reaction [...] sleep(Confirmed) Active Recurrent urinary tract infection(Confirmed) Active Vital Signs Most recent to oldest [Reference Range]: 1 2 3 Weight 106.5 kg (11/13/19 8:22 AM) 106.5 kg (11/13/19 6:00 AM) 106.5 kg (11/12/19 7:32 PM) Oxygen Saturation [94-100 %] 100 % (11/13/19 8:22 AM) 100 % (11/13/19 6:31 AM) 100 % (11/13/19 6:00 AM) Pulse Rate [55-90 bpm] 60 bpm (11/13/19 8:22 AM) 65 bpm (11/13/19 6:31 AM) 69 bpm (11/13/19 6:00 AM) Blood Pressure [90-138/55-84 mm Hg] 132/76mm Hg (11/13/19 8:22 AM) 153/80mm Hg *H* (11/13/19 6:31 AM) 134/78mm Hg (11/13/19 6:00 AM) Respiratory Rate [16-30 br/min] 11 br/min *L* (11/13/19 8:22 AM) 17 br/min (11/13/19 6:31 AM) 18 br/min (11/13/19 6:00 AM) Temperature [96.8-100.4 DegF] 98.1 DegF (11/13/19 8:22 AM) 98.0 DegF (11/13/19 6:00 AM) 98.1 DegF (11/13/19 2:12 AM) Mode of Delivery (Oxygen) Room air (11/13/19 8:22 AM) Room air (11/13/19 6:31 AM) Room air (11/13/19 6:00 AM) Blood pressure sites Arm, left (11/13/19 8:22 AM) Arm, right (11/13/19 6:31 AM) Arm, right (11/13/19 6:00 AM) Temperature Route Oral (11/13/19 8:22 AM) Oral (11/13/19 6:00 AM) Oral (11/13/19 2:12 AM) Dry Weight 106.5 kg (11/13/19 8:22 AM) 106.5 kg (11/13/19 6:00 AM) 106.5 kg (11/12/19 7:32 PM) Weight Obtained Via Patient/family state d (11/12/19 7:18 PM) Dry Weight Obtained Via Patient/family s tated (11/12/19 7:18 PM) Social History Social History Type Response Smoking Status Never (less than 100 in lifetime) entered on: 11/19/18 Sex
--- OUTSIDE RECORDS SUMMARY | 2023-10-02 01:34 | XMS_ITS | Continuity of Care Document ---
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
--- OUTSIDE RECORDS SUMMARY | 2023-10-02 01:34 | XMS_ITS | Continuity of Care Document ---
Author Organization [facility] Address [address] [place] [address]- Care Team Providers Care Parent Aide Name Role Phone Lxea Roche MD Primary Care Physician [phone] Encounter [facility] [id number] Date(s): 05/10/19 - 08/17/19 [facility] [address] [place] [address] [facility] Attending Physician: Hortensia Flores MD Admitting Physician: Hortensia Flores MD Referring Physician: Lexa Roche MD Allergies, Adverse Reactions, Alerts Substance Reaction [...]
[2023-10-02] MEDS: Acetaminophen 325 MG TABLET 975 MG PO (03:33)
[2023-10-02 04:27] VITALS: BP 142/68; PULSE 89; RESP 16; TEMP 36.8; O2SAT 98
== END 2023-10-02 04:28 | disposition home or self-care (01) ==
PROVIDERS: Emergency Provider Emergency Medicine Emergency Medical Services; PCP Internal Medicine
DX: S93.401A Sprain of unspecified ligament of right ankle, initial encounter (principal); S96.911A Strain of unspecified muscle and tendon at ankle and foot level, right foot, initial encounter; X50.9XXA Other and unspecified overexertion or strenuous movements or postures, initial encounter; Y93.01 Activity, walking, marching and hiking; Y92.414 Local residential or business street as the place of occurrence of the external cause; Y99.9 Unspecified external cause status
CPT/HCPCS: 73610; 73630; 99283; 99284

== ENCOUNTER 2023-11-22 22:12 | Emergency (ER) | payer OTHER, SELFPAY ==
--- NOTE | ~2023-11-22 | XR_ITS ---
EXAMINATION: XR LEFT HIP WITH AP PELVIS CLINICAL INFORMATION: Fall. COMPARISON: CT dated 12/20/2017 TECHNIQUE: AP and frog-leg lateral views of the left hip and an AP view of the pelvis. 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 No fracture or malalignment. Hip joints appear well-preserved. Bone mineralization is normal. There is facet arthropathy in the lower lumbar spine. ID is noted in the central pelvis along surgical clips in the left hemipelvis. XR/XR hip LT w PEL1V IMPRESSION: 1. No acute fracture or malalignment in the pelvis and left hip. 2. Mild osteoarthritis in the SI joints.
--- NOTE | ~2023-11-22 | XR_ITS ---
EXAMINATION: XR ANKLE, LEFT XR FOOT, LEFT CLINICAL INFORMATION: Fall. COMPARISON: None TECHNIQUE: AP, lateral, and mortise views of the left ankle and AP, lateral, and both oblique views of the left foot. FINDINGS: LEFT ANKLE: No fracture. Alignment is anatomic. Ankle mortise is symmetric. Joint spaces are maintained. No ankle joint effusion. LEFT FOOT: No fracture. Alignment is anatomic. No erosions. Joint spaces are maintained. Moderate sized enthesopathic spur is present at the plantar fascial origin on the calcaneus. XR/XR foot LT min 3V IMPRESSION: No acute fracture or malalignment in the left ankle and foot.
--- NOTE | ~2023-11-22 | XR_ITS ---
EXAMINATION: XR ANKLE, LEFT XR FOOT, LEFT CLINICAL INFORMATION: Fall. COMPARISON: None TECHNIQUE: AP, lateral, and mortise views of the left ankle and AP, lateral, and both oblique views of the left foot. FINDINGS: LEFT ANKLE: No fracture. Alignment is anatomic. Ankle mortise is symmetric. Joint spaces are maintained. No ankle joint effusion. LEFT FOOT: No fracture. Alignment is anatomic. No erosions. Joint spaces are maintained. Moderate sized enthesopathic spur is present at the plantar fascial origin on the calcaneus. XR/XR ankle LT min 3V IMPRESSION: No acute fracture or malalignment in the left ankle and foot.
[2023-11-22 22:23] VITALS: BP 136/90; PULSE 73; RESP 18; TEMP 36.4; O2SAT 100; BMI 46.6
[2023-11-23 00:28] VITALS: BP 133/66; PULSE 57; RESP 18; TEMP 36.8; O2SAT 96
--- NOTE | 2023-11-23 00:47 | ED.LOWEXIN ---
HPI - Extremity Injury (Lower) General Chief Complaint: Extremity Injury, Lower Stated Complaint: fall, left hip pain Time Seen by Provider: 11/23/23 00:27 Source: patient Mode of arrival: ambulatory Limitations: no limitations History of Present Illness ED Provider: umu HPI Narrative: Patient apparently going upstairs taking stone or with her lost balance and fell few steps landed on her left hip complaining of pain on the lateral aspect of the left hip able to ambulate no other injuries Related Data Previous Rx's ?Medication ?Instructions ?Recorded oxycodone-acetaminophen 5 mg-325 1 tab PO Q6H PRN pain #20 tabs 03/13/23 mg tablet (Percocet) oxycodone 5 mg tablet 5 mg PO Q6H PRN pain #30 tabs 04/03/23 cyclobenzaprine 10 mg tablet 10 mg PO TID PRN muscle pain or 08/22/23 spasm #20 tabs ibuprofen 400 mg tablet 400 mg PO Q6H PRN pain #20 tabs 10/02/23 oxycodone 5 mg tablet 5 mg PO Q6H PRN pain #20 tabs 11/23/23 Allergies Allergy/AdvReac Type Severity Reaction Status Date / Time codeine [CODEINE] Allergy Unknown RASH Verified 11/22/23 22:28 tramadol AdvReac Anxiety Verified 11/22/23 22:28 From VICODIN Allergy Unknown ANXIETY Uncoded 10/02/23 00:58 Review of Systems Review of Systems: Yes all other systems are reviewed and are negative PMFSH Social History Social History Alcohol intake: never Use of substances other than those prescribed or required for medical reasons: No Advance Directives: No Advance Directives Information Provided: Yes Do you have a plan to hurt others: No Plan Patient : No Physical Exam Vital Signs: Vital Signs: Last Vital Signs Temp 98.3 F 11/23/23 01:07 Pulse 57 11/23/23 01:07 Resp 18 11/23/23 01:07 BP 133/66 11/23/23 01:07 Pulse Ox 96 11/23/23 00:28 O2 Del Method Room Air 11/23/23 00:28 BMI result Body Mass Index 46.6 Appearance: Alert. Oriented X3. No acute distress. Eyes: PERRLA, No Nystagmus ENT: Pharynx normal. Oral Mucosa moist AT NC Neck: Normal inspection. Neck supple. CVS: Normal heart rate and rhythm. Pulses normal. Respiratory: No respiratory distress. Equal air entry bilateral, Abdomen: Soft and nontender. Bowel sounds are present, Skin: Skin warm and dry. Normal skin color. Normal skin turgor. back: No spinal tenderness Extremities: No lower extremity edema. No calf tenderness tenderness left greater trochanteric area no bruising Neuro: Oriented X 3. No motor deficit. Medications Administered Discontinued Medications Generic Name Dose Route Start Last Admin Trade Name Freq PRN Reason Stop Dose Admin Oxycodone HCl 10 mg 11/23/23 00:44 11/23/23 00:55 Oxycodone Hcl Immed Release 5 Mg Tablet PO 11/23/23 00:45 10 mg ONCE ONE Administration Medical Decision Making Medical Decision Making [facility] Narrative: X-ray negative for fracture likely has contusion to the left trochanteric area patient is able to ambulate Independent Interpretation I performed an independent interpretation of an: Plain X-Ray Radiology Impression Discussion of test interpretation with radiology: I have reviewed the radiologist's reading. Discharge Plan Discharge Clinical Impression: Contusion of left hip Patient Disposition: Home, Self-Care Instructions: Hip Contusion (ED) Additional Instructions: Take pain medication as prescribed Apply ice pack Your x-rays are negative for fracture Prescriptions: New oxycodone 5 mg tablet 5 mg PO Q6H PRN (Reason: pain) Qty: 20 0RF Rx Instructions: Partial Fill upon patient request. No Action oxycodone-acetaminophen [Percocet] 5-325 mg tablet 1 tab PO Q6H PRN (Reason: pain) Qty: 20 0RF Rx Instructions: Partial Fill upon patient request. oxycodone 5 mg tablet 5 mg PO Q6H PRN (Reason: pain) Qty: 30 0RF Rx Instructions: Partial Fill upon patient request. cyclobenzaprine 10 mg tablet 10 mg PO TID PRN (Reason: muscle pain or spasm) Qty: 20 0RF ibuprofen 400 mg tablet 400 mg PO Q6H PRN (Reason: pain) Qty: 20 0RF Interventions: ED Discharge Assessment Last Done: 11/23/23 01:07 Discharge Date/Time: 11/23/23 01:08 Print Language: Hong Konger
[2023-11-23] MEDS: oxyCODONE HCl Immed Release 5 MG TABLET 10 MG PO (00:55)
[2023-11-23 01:07] VITALS: BP 133/66; PULSE 57; RESP 18; TEMP 36.8
== END 2023-11-23 01:08 | disposition home or self-care (01) ==
PROVIDERS: Emergency Provider Internal Medicine; PCP Physician Assistant Medical
DX: S70.02XA Contusion of left hip, initial encounter (principal); W10.8XXA Fall (on) (from) other stairs and steps, initial encounter; Y93.89 Activity, other specified; Y92.008 Other place in unspecified non-institutional (private) residence as the place of occurrence of the external cause; Y99.9 Unspecified external cause status
CPT/HCPCS: 73502; 73610; 73630; 99283; 99284

== ENCOUNTER 2023-11-27 22:12 | Emergency (ER) | payer OTHER, SELFPAY ==
--- NOTE | ~2023-11-27 | CT_ITS ---
EXAMINATION: CT ABDOMEN AND PELVIS WITHOUT CONTRAST CLINICAL INFORMATION: Left flank pain COMPARISON: 08/20/2017 TECHNIQUE: Multidetector volumetric imaging was performed from the superior aspect of the liver through the pubic symphysis. Sagittal and coronal reformatted images were obtained on the technologist's workstation. This CT examination was performed using dose optimization techniques as appropriate, variously including the following: *Automated exposure control *Adjustment of mA and/or kV according to patient size (this includes techniques or standardized protocols for targeted exams where dose is matched to indication/reason for exam; i.e. extremities or head) *Use of iterative reconstruction technique DLP: 1118 mGy-cm FINDINGS: LUNG BASES: The visualized lung bases are unremarkable. LIVER, GALLBLADDER, AND BILIARY TREE: The liver is normal in size, shape, and attenuation. No focal hepatic lesion or biliary ductal dilatation is identified on this noncontrast exam. Patient is status post cholecystectomy. PANCREAS: Unremarkable. SPLEEN: Enlarged, measuring approximately 14.5 cm in the axial plane. ADRENAL GLANDS: Unremarkable. KIDNEYS AND URETERS: No hydronephrosis or obstructing calculus bilaterally. No perinephric stranding. BLADDER: Mildly distended and grossly unremarkable. GASTROINTESTINAL TRACT: Suture line is present along the stomach. No evidence of bowel obstruction or significant wall thickening. Mobile cecum is noted, now lying higher in the right abdomen than on the prior exam. No free fluid or free air is seen. ABDOMINAL WALL: No significant hernia is appreciated. LYMPH NODES: Normal. VASCULAR: Unremarkable. PELVIC VISCERA: IUD is present in the uterus. OSSEOUS STRUCTURES: Scattered endplate osteophytes in the spine. Additional degenerative changes at L5-S1. CT/CT abdomen pelvis wo IV con IMPRESSION: No acute findings identified in the abdomen/pelvis. Splenomegaly.
[2023-11-27 22:15] VITALS: BP 146/73; PULSE 73; RESP 19; TEMP 36.3; O2SAT 100; BMI 46.6
[2023-11-27 22:35] LABS: MANUAL DIFF FLAG NO
[2023-11-27 22:36] LABS: Basophils Percent Auto 0.6 % (0-2); Eosinophils Absolute Auto 0.1 X10*3/uL (0.0-0.4); Eosinophils Percent Auto 1.7 % (0-4); Hematocrit 36.8 % (37.0-47.0); Hemoglobin 12.2 g/dl (12.0-16.0); Imm Gran Abs Auto 0.03 X10*3/uL (0.00-0.03); Imm Gran Pct Auto 0.4 % (0.0-0.4); Lymphocytes Percent Auto 28.5 % (20-40); Mean Corpuscular HGB Conc 33.2 g/dl (31.0-35.0); Mean Corpuscular Hemoglobin 26.9 pg (27.0-33.0); Mean Corpuscular Volume 81.2 fL (80.0-98.0); Mean Platelet Volume 9.2 fL (9.4-12.3); Monocytes Absolute Auto 0.4 X10*3/uL (0.1-1.2); Monocytes Percent Auto 4.9 % (2-11); Neutrophils Absolute Auto 4.6 x10*3/uL (2.0-8.3); Neutrophils Percent Auto 63.9 % (45-73); Platelet Count 194 X10*3/uL (160-400); Red Blood Count 4.53 X10*6/uL (4.20-5.50); Red Cell Distribution Width 13.1 % (11.0-16.0); White Blood Count 7.2 X10*3/uL (4.8-10.8)
[2023-11-27 22:37] LABS: Appearance Urine Cloudy; Color Urine Yellow; Glucose Urine UA Negative (Negative); Leukocyte Esterase Urine Large (3+) (Negative); Nitrite Urine Negative (Negative); UMIC TRIGGER UACC YES; Urine Blood Negative (Negative); Urine Ketones Negative (Negative); Urine Protein Negative (Neg-Trace)
[2023-11-27 22:39] LABS: UPreg QC Valid YES; Urine Pregnancy NEGATIVE (NEGATIVE)
[2023-11-27 22:44] LABS: Bacteria Urine None Seen (None Seen); Hyaline Casts Urine 0-2 /LPF (0-2); RBC Urine 0-2 /HPF (0-2); UACC Culture Trigger YES; WBC Urine 21-50 /HPF (0-5)
[2023-11-27 22:49] LABS: Alanine Aminotransferase 15 U/L (0-31); Albumin Level 4.3 g/dL (3.5-5.0); Alkaline Phosphatase 69 U/L (39-117); Anion Gap 13 (12-20); Aspartate Amino Transferase 18 U/L (5-31); Bilirubin Total 0.3 mg/dL (0.0-1.0); Blood Urea Nitrogen 16 mg/dL (9-16); Calcium 9.1 mg/dL (8.4-10.2); Carbon Dioxide 23 mmol/L (22-29); Chloride 109 mmol/L (96-108); Creatinine Clr Calc Pharmacy 111.9; Estimated Glomerular Filt Rate > 60; Glucose Random 116 mg/dL (60-115); Potassium 4.1 mmol/L (3.3-5.1); Sodium 141 mmol/L (135-145); Total Protein 7.2 g/dL (6.5-8.0)
[2023-11-27 22:51] LABS: IDNOW Serial# 58CA691E; Influenza A Negative (Negative); Influenza B2 Negative (Negative)
[2023-11-27 22:52] LABS: COVID-19 Test Negative (Negative); IDNOW Serial# 08D9AD1C
--- NOTE | 2023-11-28 01:02 | ED_ITS ---
HPI - General Adult General Chief complaint: General Medical Stated complaint: nauseous, vomiting, headache Time Seen by Provider: 11/28/23 00:27 Source: patient, RN notes reviewed and old records reviewed Mode of arrival: ambulatory Limitations: no limitations History of Present Illness ED Provider: Jory HPI narrative: 43-year-old female who denies any past medical history presents for evaluation of 2 complaints. She states for the last 2 days she has had nausea, vomiting, mild abdominal pain. She is additionally had increased thirst, headache, dizziness. She reports some mild vaginal itching She states that she frequently feels like she has to urinate but ?only a little bit comes out. ? She reports some left flank pain She has chills but denies any tactile fevers Reports a previous gastric sleeve and cholecystectomy, no other abdominal surgeries Denies any sick contacts Patient denies any chest pain, respiratory symptoms such as cough, shortness of breath, congestion Related Data Previous Rx's ?Medication ?Instructions ?Recorded oxycodone-acetaminophen 5 mg-325 1 tab PO Q6H PRN pain #20 tabs 03/13/23 mg tablet (Percocet) oxycodone 5 mg tablet 5 mg PO Q6H PRN pain #30 tabs 04/03/23 cyclobenzaprine 10 mg tablet 10 mg PO TID PRN muscle pain or 08/22/23 spasm #20 tabs ibuprofen 400 mg tablet 400 mg PO Q6H PRN pain #20 tabs 10/02/23 oxycodone 5 mg tablet 5 mg PO Q6H PRN pain #20 tabs 11/23/23 cefuroxime axetil 250 mg tablet 250 mg PO Q12H #14 tabs 11/28/23 oxycodone 5 mg tablet 5 mg PO Q6H PRN severe pain (scale 11/28/23 score 7-10) #12 tabs Allergies Allergy/AdvReac Type Severity Reaction Status Date / Time codeine [CODEINE] Allergy Unknown RASH Verified 11/27/23 22:17 tramadol AdvReac Anxiety Verified 11/27/23 22:17 From VICODIN Allergy Unknown ANXIETY Uncoded 11/27/23 22:17 Review of Systems 2 Constitutional: Constitutional: Reports as per HPI, Reports chills, Denies fatigue, Denies fever(s), Reports headache(s) and Reports malaise ENT: Reports headache(s) Cardiovascular: Cardiovascular: Denies chest pain and Denies dyspnea Respiratory: Respiratory: Denies cough and Denies dyspnea Gastrointestinal: Gastrointestinal: Reports abdominal pain (Left flank pain), Denies constipation, Reports nausea and Denies vomiting Genitourinary: Genitourinary: Reports difficulty voiding and Reports vaginal pruritus Musculoskeletal: Musculoskeletal: Reports back pain Neurologic: Reports headache(s) and Denies focal weakness Endocrine: Endocrine: Denies fatigue PMFSH Social History Social History Alcohol intake: never Smoked in Last 30 Days: No Use of substances other than those prescribed or required for medical reasons: No Advance Directives: No Advance Directives Information Provided: No Do you have a plan to hurt others: No Plan Patient : No Physical Exam ED Vital Signs: Vital Signs - 24 hr 11/27/23 22:15 Temperature 97.3 F Pulse Rate 73 Respiratory Rate 19 Blood Pressure 146/73 H Pulse Oximetry 100 Oxygen Delivery Method Room Air BMI result Body Mass Index 46.6 Const General: healthy appearing, comfortable, no acute distress, alert and awake Nutritional Appearance: well nourished Orientation/consciousness: patient oriented x3 HENMT Head: Yes normocephalic and Yes atraumatic Eyes Eyelids: Yes eyelids normal Conjunctivae: conjunctivae normal Sclerae: sclerae normal Corneas: corneas normal Pupils: Equal, round and reactive pupils present EOM: EOMs intact bilaterally Neck Neck: Yes full ROM Resp Effort & Inspection: normal respiratory effort, able to speak in complete sentences, no audible wheezes and not labored Auscultation: clear to auscultation bilaterally Cardio Rate: regular rate Rhythm: regular rhythm GI Inspection: No distended Palpation (GI): Soft to palpation, not firm, nontender, no guarding and not rigid General: Yes CVA tenderness (Left side only) Back/Spine/Pelvis Back: CVA tenderness (Left side only) Skin General skin exam: elasticity normal Neuro General: patient oriented x3 Cranial nerves: Yes Equal, round and reactive pupils present and Yes Bilaterally intact EOM present Cognition (Neuro): normal cognition Extrem Other: Moving all extremities well without any obvious deformities Course Reevaluation(s) Reevaluation #1: Patient's workup largely unremarkable, she does have a mild UTI. Your CT scan shows no evidence of obstructive uropathy, she is still complaining of left flank pain that is worse with movement, this may be unrelated to her UTI and may be muscular in nature. We will give her a short course of oxycodone due to tramadol and codeine allergies as well as Vicodin allergy. She will use ibuprofen and Tylenol as well for mild pain now treat her with cefuroxime for 7 days for possible pyelonephritis but clinically I think this is less likely Time: 02:14 Medications Administered Discontinued Medications Generic Name Dose Route Start Last Admin Trade Name Freq PRN Reason Stop Dose Admin Sodium Chloride 1,000 mls @ 999 mls/hr 11/28/23 00:45 11/28/23 01:13 Ns IV 11/28/23 01:45 999 mls/hr .Q1H1M ALYSON Administration Ketorolac Tromethamine 30 mg 11/28/23 00:36 11/28/23 01:13 Ketorolac Tromethamine 30 Mg/Ml Vial IVPUSH 11/28/23 00:37 30 mg ONCE ONE Administration Ondansetron HCl 4 mg 11/28/23 00:36 11/28/23 01:13 Ondansetron Hcl 4 Mg/2 Ml Vial IVPUSH 11/28/23 00:37 4 mg ONCE ONE Administration Medical Decision Making Medical Decision Making [facility] Narrative: 43-year-old female presents for evaluation of multiple complaints as described above. With chief complaint seems to be left flank pain, difficulty urinating and nausea. The patient is mildly hypertensive but otherwise all signs are within normal limits, she is afebrile. She has no leukocytosis or significant anemia. No left shift. Chemistries without significant abnormality. The patient's chloride is septic normal at 109, she is a random glucose of 116 no evidence of DKA. Urinalysis has large esterase with 21-50 white cells which could indicate urinary tract infection explain the patient's abdominal pain, nausea and flank pain. Given the CVA tenderness on the left, plan for CT scan to evaluate for obstructive uropathy. In the meantime patient medicated with fluids, Toradol, Zofran Differential Diagnosis Differential Diagnoses: The differential diagnosis associated with the presentation includes UTI Cystitis Obstructive uropathy Viral syndrome Vertigo Lab Data MDM Lab Attestation statement: I reviewed the patient's lab results. Please see medical decision making section above 11/27/23 22:28 11/27/23 22:28 Labs: Lab Results 11/27/23 Range/Units 22:28 WBC 7.2 (4.8-10.8) X10*3/uL RBC 4.53 (4.20-5.50) X10*6/uL Hgb 12.2 (12.0-16.0) g/dl Hct 36.8 L (37.0-47.0) % MCV 81.2 (80.0-98.0) fL MCH 26.9 L (27.0-33.0) pg MCHC 33.2 (31.0-35.0) g/dl RDW 13.1 (11.0-16.0) % Plt Count 194 (160-400) X10*3/uL MPV 9.2 L (9.4-12.3) fL Immature Gran % (Auto) 0.4 (0.0-0.4) % Neut % (Auto) 63.9 (45-73) % Lymph % (Auto) 28.5 (20-40) % [place] % (Auto) 4.9 (2-11) % Eos % (Auto) 1.7 (0-4) % Baso % (Auto) 0.6 (0-2) % Lymph # (Auto) 2.0 (1.2-4.9) X10*3/uL [place] # (Auto) 0.4 (0.1-1.2) X10*3/uL Eos # (Auto) 0.1 (0.0-0.4) X10*3/uL Baso # (Auto) 0.0 (0.0-0.2) X10*3/uL Abs Immat Gran (auto) 0.03 (0.00-0.03) X10*3/uL Absolute Neuts (auto) 4.6 (2.0-8.3) x10*3/uL Absolute Nucleated RBC 0.000 (0.0-0.012) X10*3/uL Nucleated RBC % (auto) 0.0 (0.0-0.2) /100WBC Sodium 141 (135-145) mmol/L Potassium 4.1 (3.3-5.1) mmol/L Chloride 109 H (96-108) mmol/L Carbon Dioxide 23 (22-29) mmol/L Anion Gap 13 (12-20) BUN 16 (9-16) mg/dL Creatinine 0.86 (0.5-1.4) mg/dL Estim Creat Clear Calc 111.9 Estimated GFR > 60 Random Glucose 116 H (60-115) mg/dL Calcium 9.1 (8.4-10.2) mg/dL Total Bilirubin 0.3 (0.0-1.0) mg/dL AST 18 (5-31) U/L ALT 15 (0-31) U/L Alkaline Phosphatase 69 (39-117) U/L Total Protein 7.2 (6.5-8.0) g/dL Albumin 4.3 (3.5-5.0) g/dL Urine Color Yellow Urine Appearance Cloudy Urine pH 6.0 (5.0-9.0) Ur Specific [place] 1.020 (1.005-1.025) Urine Protein Negative (Neg-Trace) mg/dL Urine Glucose (UA) Negative (Negative) mg/dL Urine Ketones Negative (Negative) mg/dL Urine Blood Negative (Negative) Urine Nitrite Negative (Negative) Ur Leukocyte Esterase Large (3+) H (Negative) Urine RBC 0-2 (0-2) /HPF Urine WBC 21-50 H (0-5) /HPF Ur Squamous Epith Cells 6-10 (0-2) /HPF Urine Bacteria None Seen (None Seen) Hyaline Casts 0-2 (0-2) /LPF Urine Test NEGATIVE (NEGATIVE) COVID-19 (LISA) Negative (Negative) COVID-19 Clin Com See Note Influenza Type A (CHRIS) Negative (Negative) Influenza Type B (CHRIS) Negative (Negative) Influenza A & B Note See Note Radiology Impression Discussion of test interpretation with radiology: I have reviewed the radiologist's reading. Radiologist Impression: CT/CT abdomen pelvis wo IV con IMPRESSION: No acute findings identified in the abdomen/pelvis. Splenomegaly. Discharge Plan Discharge Clinical Impression: UTI (urinary tract infection), Acute left flank pain Patient Disposition: Home, Self-Care Instructions: Flank Pain (ED) Additional Instructions: Your workup in the ER today was reassuring. This includes your blood work. Your urinalysis showed a mild UTI which may explain your flank pain. Your CT scan did not show any kidney stones or signs of complicated urinary tract infection Use Motrin/Tylenol for pain Take cefuroxime twice daily for 1 week. Use oxycodone for severe breakthrough pain. Follow-up with your primary doctor, return for new or worsening symptoms Prescriptions: New oxycodone 5 mg tablet 5 mg PO Q6H PRN (Reason: severe pain (scale score 7-10)) Qty: 12 0RF Rx Instructions: Partial Fill upon patient request. cefuroxime axetil 250 mg tablet 250 mg PO Q12H Qty: 14 0RF No Action oxycodone-acetaminophen [Percocet] 5-325 mg tablet 1 tab PO Q6H PRN (Reason: pain) Qty: 20 0RF Rx Instructions: Partial Fill upon patient request. oxycodone 5 mg tablet 5 mg PO Q6H PRN (Reason: pain) Qty: 30 0RF Rx Instructions: Partial Fill upon patient request. cyclobenzaprine 10 mg tablet 10 mg PO TID PRN (Reason: muscle pain or spasm) Qty: 20 0RF ibuprofen 400 mg tablet 400 mg PO Q6H PRN (Reason: pain) Qty: 20 0RF oxycodone 5 mg tablet 5 mg PO Q6H PRN (Reason: pain) Qty: 20 0RF Rx Instructions: Partial Fill upon patient request. Print Language: Bermudian
[2023-11-28] MEDS: 0.9 % Sodium Chloride 1,000 ML 999 ML IV (01:13)
[2023-11-28] MEDS: Ketorolac Tromethamine 30 MG/ML VIAL IVPUSH (01:13)
[2023-11-28] MEDS: ondansetron HCL 4 MG/2 ML VIAL IVPUSH (01:13)
[2023-11-28 03:03] VITALS: BP 138/71; PULSE 73; RESP 15; TEMP 36.8; O2SAT 96
== END 2023-11-28 03:04 | disposition home or self-care (01) ==
PROVIDERS: Emergency Provider Emergency Medicine; PCP Physician Assistant Medical
DX: N39.0 Urinary tract infection, site not specified (principal); R10.9 Unspecified abdominal pain; R11.2 Nausea with vomiting, unspecified; R51.9 Headache, unspecified; Z79.899 Other long term (current) drug therapy
CPT/HCPCS: 74176; 80053; 81001; 81025; 85025; 87086; 87147; 87502; 87635; 96361; 96374; 96375; 99284; J1885; J2405

== ENCOUNTER → 2024-04-06 22:30 | Outpatient (BNV) | payer OTHER, SELFPAY | PROVIDERS: Emergency Provider Internal Medicine; PCP Physician Assistant Medical; Visit Provider Internal Medicine Cardiovascular Disease | DX: R07.9 Chest pain, unspecified (principal) | CPT/HCPCS: 93010 ==

== ENCOUNTER 2024-04-06 22:33 | Emergency (ER) | payer OTHER, SELFPAY ==
--- NOTE | 2024-04-06 | ECG_ITS ---
Test Reason : CP Blood Pressure : / mmHG Vent. Rate : 064 BPM Atrial Rate : 064 BPM P-R Int : 140 ms QRS Dur : 096 ms QT Int : 420 ms P-R-T Axes : 038 -02 007 degrees QTc Int : 433 ms Normal sinus rhythm Normal ECG No previous ECGs available Referred By: Generic ED Physician Electronically Signed By:Rambo Peguero
--- NOTE | ~2024-04-06 | XR_ITS ---
EXAMINATION: XR CHEST CLINICAL INFORMATION: cp COMPARISON: None available. TECHNIQUE: Frontal view of the chest was obtained. FINDINGS: No significant abnormality is noted involving the heart, lungs, mediastinum, bony thorax or soft tissues. XR/XR chest 1V IMPRESSION: Unremarkable examination. Electronically signed by: Duke Parry MD 04/07/2024 03:39 AM [facility]
[2024-04-06 22:42] VITALS: BP 150/76; PULSE 68; RESP 16; TEMP 37; O2SAT 98; BMI 49.2
[2024-04-06 23:04] LABS: MANUAL DIFF FLAG NO
[2024-04-06 23:06] LABS: Basophils Percent Auto 0.5 % (0-2); Eosinophils Absolute Auto 0.2 X10*3/uL (0.0-0.4); Eosinophils Percent Auto 3.1 % (0-4); Hematocrit 34.7 % (37.0-47.0); Hemoglobin 11.2 g/dl (12.0-16.0); Imm Gran Abs Auto 0.02 X10*3/uL (0.00-0.03); Imm Gran Pct Auto 0.3 % (0.0-0.4); Lymphocytes Percent Auto 31.8 % (20-40); Mean Corpuscular HGB Conc 32.3 g/dl (31.0-35.0); Mean Corpuscular Hemoglobin 26.7 pg (27.0-33.0); Mean Corpuscular Volume 82.6 fL (80.0-98.0); Mean Platelet Volume 9.6 fL (9.4-12.3); Monocytes Absolute Auto 0.4 X10*3/uL (0.1-1.2); Monocytes Percent Auto 5.7 % (2-11); Neutrophils Absolute Auto 3.7 x10*3/uL (2.0-8.3); Neutrophils Percent Auto 58.6 % (45-73); Platelet Count 205 X10*3/uL (160-400); Red Cell Distribution Width 13.7 % (11.0-16.0); White Blood Count 6.4 X10*3/uL (4.8-10.8)
[2024-04-06 23:19] LABS: Alanine Aminotransferase 17 U/L (0-31); Albumin Level 4.1 g/dL (3.5-5.0); Alkaline Phosphatase 63 U/L (39-117); Anion Gap 9 (12-20); Aspartate Amino Transferase 24 U/L (5-31); Bilirubin Total 0.3 mg/dL (0.0-1.0); Blood Urea Nitrogen 18 mg/dL (9-16); Calcium 8.4 mg/dL (8.4-10.2); Carbon Dioxide 26 mmol/L (22-29); Chloride 109 mmol/L (96-108); Creatinine Clr Calc Pharmacy 122.8; Estimated Glomerular Filt Rate > 60; Glucose Random 110 mg/dL (60-115); Potassium 3.8 mmol/L (3.3-5.1); Sodium 140 mmol/L (135-145); Total Protein 6.9 g/dL (6.5-8.0)
[2024-04-06 23:26] LABS: Troponin-I High Sensitivity < 2.7 ng/L (<3.5-17.0)
[2024-04-06 23:43] LABS: Influenza A PCR NEGATIVE (Negative); Influenza B PCR NEGATIVE (Negative); Resp Syncy Virus RNA Qual PCR NEGATIVE (Negative); SARS COV2 PCR INHOUSE NEGATIVE (Negative)
--- NOTE | 2024-04-07 04:05 | ED_ITS ---
HPI - General Adult General Chief complaint: General Medical Stated complaint: Chest pain, dizziness, vomiting Time Seen by Provider: 04/07/24 02:43 Source: patient Mode of arrival: ambulatory Limitations: no limitations History of Present Illness ED Provider: HPI narrative: Patient been having headache with nausea and light sensitivity since 16:30 no diagnose history of migraine no fever , nausea also complaining of mid chest pain which is like burning sensation after she threw up several times Related Data Previous Rx's ?Medication ?Instructions ?Recorded oxycodone-acetaminophen 5 mg-325 1 tab PO Q6H PRN pain #20 tabs 03/13/23 mg tablet (Percocet) oxycodone 5 mg tablet 5 mg PO Q6H PRN pain #30 tabs 04/03/23 cyclobenzaprine 10 mg tablet 10 mg PO TID PRN muscle pain or 08/22/23 spasm #20 tabs ibuprofen 400 mg tablet 400 mg PO Q6H PRN pain #20 tabs 10/02/23 oxycodone 5 mg tablet 5 mg PO Q6H PRN pain #20 tabs 11/23/23 cefuroxime axetil 250 mg tablet 250 mg PO Q12H #14 tabs 11/28/23 oxycodone 5 mg tablet 5 mg PO Q6H PRN severe pain (scale 11/28/23 score 7-10) #12 tabs pcxnnebdly-ujtadbvqnxxej-fulgnyul 1 tab PO Q6H PRN haeadace #20 tabs 04/07/24 50 mg-325 mg-40 mg tablet Allergies Allergy/AdvReac Type Severity Reaction Status Date / Time codeine [CODEINE] Allergy Unknown RASH Verified 04/06/24 22:43 tramadol AdvReac Anxiety Verified 04/06/24 22:43 From VICODIN Allergy Unknown ANXIETY Uncoded 04/06/24 22:43 Review of Systems 2 Review of Systems: Yes all other systems are reviewed and are negative PMFSH Social History Social History Alcohol intake: never Smoked in Last 30 Days: No Use of substances other than those prescribed or required for medical reasons: No Advance Directives: No Advance Directives Information Provided: Yes Do you have a plan to hurt others: No Plan Patient : No Physical Exam ED Vital Signs: Vital Signs - 24 hr 04/06/24 22:42 04/07/24 06:18 Temperature 98.6 F 98.1 F Pulse Rate 68 62 Respiratory Rate 16 17 Blood Pressure 150/76 H 135/82 Pulse Oximetry 98 97 Oxygen Delivery Method Room Air Room Air BMI result Body Mass Index 49.2 Appearance: Alert. Oriented X3. No acute distress. Eyes: PERRLA, No Nystagmus ENT: Pharynx normal. Oral Mucosa moist no temporal artery tenderness Neck: Normal inspection. Neck supple. CVS: Normal heart rate and rhythm. Pulses normal. Respiratory: No respiratory distress. Equal air entry bilateral, no wheezing/rales/rhonchi Abdomen: Soft and nontender. Bowel sounds are present, no mass palpable, no CVA tenderness Skin: Skin warm and dry. Normal skin color. Normal skin turgor. Extremities: No lower extremity edema. No calf tenderness Neuro: Oriented X 3. No motor deficit. No sensory deficit.No cerebellar signs , cranial nerves II-XII intact Medications Administered Discontinued Medications Generic Name Dose Route Start Last Admin Trade Name Freq PRN Reason Stop Dose Admin Acetaminophen/Butalbital/Caffeine 1 tab 04/07/24 06:34 04/07/24 07:20 Butalb/Acetamin/Caff 50/325/40 Tablet PO 04/07/24 06:35 1 tab ONCE ONE Administration Ketorolac Tromethamine 60 mg 04/07/24 06:34 04/07/24 07:20 Ketorolac Tromethamine 60 Mg/2 Ml Vial IM 04/07/24 06:35 60 mg ONCE ONE Administration Ondansetron HCl 4 mg 04/07/24 04:16 04/07/24 04:53 Ondansetron Odt 4 Mg Tab.Rapdis TRANSLINGU 04/07/24 04:17 4 mg ONCE ONE Administration Sumatriptan Succinate 6 mg 04/07/24 04:16 04/07/24 04:53 Sumatriptan Succinate 6 Mg/0.5 Ml Vial SUBCUT 04/07/24 04:17 6 mg ONCE ONE Administration Medical Decision Making Medical Decision Making [facility] Narrative: Patient's migraine headache partially respond to Imitrex will give her Toradol IM and Fioricet. Labs are stable Differential Diagnosis Differential Diagnoses: The differential diagnosis associated with the presentation includes Lab Data [facility] Lab Attestation statement: I reviewed the patient's lab results. 04/06/24 22:57 04/06/24 22:57 Labs: Lab Results 04/06/24 Range/Units 22:57 WBC 6.4 (4.8-10.8) X10*3/uL RBC 4.20 (4.20-5.50) X10*6/uL Hgb 11.2 L (12.0-16.0) g/dl Hct 34.7 L (37.0-47.0) % MCV 82.6 (80.0-98.0) fL MCH 26.7 L (27.0-33.0) pg MCHC 32.3 (31.0-35.0) g/dl RDW 13.7 (11.0-16.0) % Plt Count 205 (160-400) X10*3/uL MPV 9.6 (9.4-12.3) fL Immature Gran % (Auto) 0.3 (0.0-0.4) % Neut % (Auto) 58.6 (45-73) % Lymph % (Auto) 31.8 (20-40) % [place] % (Auto) 5.7 (2-11) % Eos % (Auto) 3.1 (0-4) % Baso % (Auto) 0.5 (0-2) % Lymph # (Auto) 2.0 (1.2-4.9) X10*3/uL [place] # (Auto) 0.4 (0.1-1.2) X10*3/uL Eos # (Auto) 0.2 (0.0-0.4) X10*3/uL Baso # (Auto) 0.0 (0.0-0.2) X10*3/uL Abs Immat Gran (auto) 0.02 (0.00-0.03) X10*3/uL Absolute Neuts (auto) 3.7 (2.0-8.3) x10*3/uL Absolute Nucleated RBC 0.000 (0.0-0.012) X10*3/uL Nucleated RBC % (auto) 0.0 (0.0-0.2) /100WBC Sodium 140 (135-145) mmol/L Potassium 3.8 (3.3-5.1) mmol/L Chloride 109 H (96-108) mmol/L Carbon Dioxide 26 (22-29) mmol/L Anion Gap 9 L (12-20) BUN 18 H (9-16) mg/dL Creatinine 0.81 (0.5-1.4) mg/dL Estim Creat Clear Calc 122.8 Estimated GFR > 60 Random Glucose 110 (60-115) mg/dL Calcium 8.4 D (8.4-10.2) mg/dL Total Bilirubin 0.3 (0.0-1.0) mg/dL AST 24 (5-31) U/L ALT 17 (0-31) U/L Alkaline Phosphatase 63 (39-117) U/L Troponin I High Sens < 2.7 (<3.5-17.0) ng/L Total Protein 6.9 (6.5-8.0) g/dL Albumin 4.1 (3.5-5.0) g/dL Influenza Type A (PCR) NEGATIVE (Negative) Influenza Type B (PCR) NEGATIVE (Negative) RSV RNA Qual (PCR) NEGATIVE (Negative) SARS-CoV-2 RNA (RT-PCR) NEGATIVE (Negative) Discharge Plan Discharge Clinical Impression: Migraine Patient Disposition: Home, Self-Care Instructions: Migraine Headache (ED) Additional Instructions: Take medication for migraine as prescribed Follow with your PCP Prescriptions: New vkthgdysnn-sqcwyxguoyupb-thmy 50-325-40 mg tablet 1 tab PO Q6H PRN (Reason: haeadace) Qty: 20 0RF No Action oxycodone-acetaminophen [Percocet] 5-325 mg tablet 1 tab PO Q6H PRN (Reason: pain) Qty: 20 0RF Rx Instructions: Partial Fill upon patient request. oxycodone 5 mg tablet 5 mg PO Q6H PRN (Reason: pain) Qty: 30 0RF Rx Instructions: Partial Fill upon patient request. cyclobenzaprine 10 mg tablet 10 mg PO TID PRN (Reason: muscle pain or spasm) Qty: 20 0RF ibuprofen 400 mg tablet 400 mg PO Q6H PRN (Reason: pain) Qty: 20 0RF oxycodone 5 mg tablet 5 mg PO Q6H PRN (Reason: pain) Qty: 20 0RF Rx Instructions: Partial Fill upon patient request. oxycodone 5 mg tablet 5 mg PO Q6H PRN (Reason: severe pain (scale score 7-10)) Qty: 12 0RF Rx Instructions: Partial Fill upon patient request. cefuroxime axetil 250 mg tablet 250 mg PO Q12H Qty: 14 0RF Print Language: Amharic
[2024-04-07] MEDS: SUMAtriptan succinate 6 MG/0.5 ML VIAL SUBCUT (04:53)
[2024-04-07] MEDS: Ondansetron ODT 4 MG TAB.RAPDIS TRANSLINGU (04:53)
[2024-04-07 06:18] VITALS: BP 135/82; PULSE 62; RESP 17; TEMP 36.7; O2SAT 97
[2024-04-07] MEDS: Ketorolac Tromethamine 60 MG/2 ML VIAL IM (07:20)
[2024-04-07] MEDS: Butalb/Acetamin/Caff 50/325/40 TABLET 1 TAB PO (07:20)
[2024-04-07 08:20] VITALS: BP 127/70; PULSE 59; RESP 18; TEMP 36.5; O2SAT 98
[2024-04-07 08:22] VITALS: BP 127/70; PULSE 59; RESP 18; TEMP 36.5; O2SAT 98
== END 2024-04-07 08:23 | disposition home or self-care (01) ==
PROVIDERS: Emergency Provider Internal Medicine; PCP Physician Assistant Medical
DX: G43.909 Migraine, unspecified, not intractable, without status migrainosus (principal); Z03.818 Encounter for observation for suspected exposure to other biological agents ruled out
CPT/HCPCS: 0241U; 71045; 80053; 84484; 85025; 93005; 96372; 99284; 99285; J1885; J3030

== ENCOUNTER 2024-11-02 22:47 | Emergency (ER) | payer OTHER, SELFPAY ==
[2024-11-02 23:03] VITALS: BP 144/94; BP 146/95; PULSE 70; PULSE 75; RESP 18; TEMP 36.9; O2SAT 98; O2SAT 99; BMI 49.9
[2024-11-03 00:05] LABS: Appearance Urine Clear; Glucose Urine UA Negative (Negative); PH 6.0 (5.0-9.0); Specific Gravity - Urine 1.025 (1.005-1.025); UMIC TRIGGER UACC YES
[2024-11-03 00:09] LABS: UACC Culture Trigger YES
--- NOTE | 2024-11-03 00:17 | ED_ITS ---
HPI - Back Pain/Injury General Chief Complaint: Back Pain/Injury Stated Complaint: low back pain radiating to legs x1week Time Seen by Provider: 11/03/24 00:00 Source: patient Mode of arrival: ambulatory Limitations: no limitations History of Present Illness ED Provider: Dr. Kathie Angela HPI Narrative: Patient comes to the emergency room complaining of lower back pain radiating towards the left lower extremity. Patient states that he feels like the pain is shooting down with certain movements. Patient denies any falls. Patient woke up with the pain. Patient denies any urinary incontinence or retention. Patient states that she has been trying to take Tylenol Motrin with a any help. Patient states that because of the pain that started about a week and a half ago, for the last 2 days this triggered her migraine headaches which have not gotten any better with the above-mentioned medication. Patient started vomiting today due to the migraine headache. Related Data Previous Rx's ?Medication ?Instructions ?Recorded oxycodone-acetaminophen 5 mg-325 1 tab PO Q6H PRN pain #20 tabs 03/13/23 mg tablet (Percocet) oxycodone 5 mg tablet 5 mg PO Q6H PRN pain #30 tab s 04/03/23 cyclobenzaprine 10 mg tablet 10 mg PO TID PRN muscle p ain or 08/22/23 spasm #20 tabs ibuprofen 400 mg tablet 400 mg PO Q6H PRN pain #20 t abs 10/02/23 oxycodone 5 mg tablet 5 mg PO Q6H PRN pain #20 tab s 11/23/23 cefuroxime axetil 250 mg tablet 250 mg PO Q12H #14 tab s 11/28/23 oxycodone 5 mg tablet 5 mg PO Q6H PRN severe pain (scale 11/28/23 score 7-10) #12 tabs ssfsppntht-goqrmwqofvroh-qdrzanvc 1 tab PO Q6H PRN hae adace #20 tabs 04/07/24 50 mg-325 mg-40 mg tablet haqobptxxr-ewfjggezelbll-fnebwvav 1 cap PO Q8H PRN cuate n #9 caps 11/03/24 50 mg-300 mg-40 mg capsule (Fioricet) cyclobenzaprine 10 mg tablet 10 mg PO TID PRN muscle s pasm #10 11/03/24 tabs Allergies Allergy/AdvReac Type Severity Reaction Status Date / Time codeine (CODEINE) Allergy Unknown RASH Verified 11/02/24 23:07 tramadol AdvReac Anxiety Verified 11/02/24 23:07 From VICODIN Allergy Unknown ANXIETY Uncoded 11/02/24 23:07 Review of Systems Review of Systems: Constitutional : No Weight loss, No Fever, No Chills, No Night Sweats, No Fatigue, No Malaise ENT/Mouth : No Hearing loss, No Ear Pain, No Nasal Congestion, No Sinus Pain, No Hoarseness, No sore throat, No Rhinorrhea, No Swallowing Difficulty Eyes: No Eye Pain, No Swelling, No Redness, No Foreign Body, No Discharge, No Vision Changes Cardiovascular : No Chest Pain, No SOB, No Dyspnea on Exertion, No Orthopnea, No Edema, No Palpitations Respiratory : No Cough, No Sputum, No Wheezing, No Smoke Exposure, No Dyspnea Gastrointestinal : No Nausea, No Vomiting, No Diarrhea, No Constipation, No abdominal Pain, No Hematochezia, No Melena Genitourinary : no irregular bleeding, No Dysuria, No Urinary Frequency, No Hematuria, No Urinary Incontinence, No Urgency, No Flank Pain, No Urinary Flow Changes, No Hesitancy Musculoskeletal : complaining of back pain radiating in a electric shock-like sensations towards the left toe Skin : No Skin Lesions, No rash Neuro : No Weakness, No Numbness, No Paresthesias, No Loss of Consciousness, No Dizziness, complaining of a migraine Headache which was triggered by the back pain Psych : No Anxiety/Panic, No Depression, No SI/HI/AH/VH, No Social Issues, Heme/Lymph: No Bruising, No Bleeding,No Lymphadenopathy Endocrine : No Polyuria, No Polydipsia, No Temperature Intolerance [facility] Past Medical History Medical History (Updated 11/03/24 @ 01:29 by Kathie Angela MD) Migraine Social History Social History Alcohol intake: never Advance Directives: No Advance Directives Information Provided: No Do you have a plan to hurt others: No Plan Physical Exam Vital Signs: Vital Signs: Last Vital Signs Temp 98.2 F 11/03/24 01:20 Pulse 68 11/03/24 01:20 Resp 14 11/03/24 01:20 BP 137/69 11/03/24 01:20 Pulse Ox 100 11/03/24 01:20 O2 Del Method Room Air 11/03/24 01:20 BMI result Body Mass Index 49.9 Const: Other: Appearance: Alert. Oriented X3. No acute distress. Eyes: Pupils equal, round and reactive to light. Patient has photophobia ENT: Pharynx normal. Neck: Normal inspection. Neck supple. No lymph nodes noted. No crepitus CVS: Normal heart rate and rhythm. Pulses normal. Normal S1 and S2 Respiratory: No respiratory distress. Breath sounds normal. No Wheezing. No rales Abdomen: Soft and nontender. No rigidity. No distention. back: Patient has a positive straight leg raise test on the left side, negative on the right. Skin: Skin warm and dry. Normal skin color. Normal skin turgor. Extremities: No lower extremity edema. No Lacerations. No Rash , normal strength in lower extremities, steady and unassisted gait Neuro: Oriented X 3. No motor deficit. No sensory deficit. Moving all extremities. No slurred speech. CN 2 through 12 grossly intact Psych: calm, cooperative, normal affect Course Course Course Narrative: patient complaining of lower back pain /sciatica that started approximately 1 week ago, unrelated to trauma. Patient states that the sciatica pain triggered her migraine headache. No complaining of photophobia and vomiting patient receiving IV fluids, ketorolac, Reglan, diphenhydramine and dexamethasone, treatment to help for both, sciatica and migraine headache Medications Administered Discontinued Medications Generic Name Dose Route Start Last Admin Trade Name Taeq PRN Reason Stop Dose Admin Dexamethasone Sodium Phosphate 4 mg 11/03/24 00:16 11/03/24 00:54 Dexamethasone Sod Phosphate 4 Mg/Ml Vial IVPUSH 11/03/24 00:17 4 mg ONCE ONE Administration Diphenhydramine HCl 25 mg 11/03/24 00:16 11/03/24 00:53 Diphenhydramine Hcl 50 Mg/Ml Vial IVPUSH 11/03/24 00:17 25 mg ONCE ONE Administration Sodium Chloride 1,000 mls @ 999 mls/hr 11/03/24 00:16 11/03/24 00:53 Ns IVCONT 11/03/24 01:16 999 mls/hr .Q1H1M ONE Administration Ketorolac Tromethamine 30 mg 11/03/24 00:16 11/03/24 00:54 Ketorolac Tromethamine 30 Mg/Ml Vial IVPUSH 11/03/24 00:17 30 mg ONCE ONE Administration Metoclopramide HCl 10 mg 11/03/24 00:16 11/03/24 00:54 Metoclopramide Hcl 10 Mg/2 Ml Vial IVPUSH 11/03/24 00:17 10 mg ONCE ONE Administration Medical Decision Making Medical Decision Making [facility] Narrative: patient states that the migraine is significantly much better. Patient is still has back pain but states that it is also better. Patient will follow-up with the primary care physician. patient's urinalysis positive for blood leukocyte esterase, negative for nitrite . Patient's previous urinalysis looks similar, the urine grew strep agalactiae. Patient denies suprapubic pain or discomfort, no flank pain. No fever chills, pyelonephritis or sepsis not suspected. At this time, antibiotics are not indicated. Differential Diagnosis Differential Diagnoses: The differential diagnosis associated with the presentation includes ( sciatica, herniated disc, tension headache, migraine headache) Lab Data [facility] Lab Attestation statement: I reviewed the patient's lab results. Labs: Lab Results 11/02/24 Range/Units 23:41 Urine Color Yellow Urine Appearance Clear Urine pH 6.0 (5.0-9.0) Ur Specific [address] 1.025 (1.005-1.025) Urine Protein 30 (1+) H (Neg-Trace) mg/dL Urine Glucose (UA) Negative (Negative) mg/dL Urine Ketones Trace (Negative) mg/dL Urine Blood Large (3+) H (Negative) Urine Nitrite Negative (Negative) Ur Leukocyte Esterase Moderate (2+) H (Negative) Urine RBC >20 H (0-2) /HPF Urine WBC 21-50 H (0-5) /HPF Ur Squamous Epith Cells 6-10 (0-2) /HPF Urine Bacteria Trace (None Seen) Hyaline Casts 0-2 (0-2) /LPF Critical Care Time Critical Care Time Critical Care Time: Yes Total Critical Care Time: 35 Attestation: I have personally provided critical care time. Time includes review of lab data, radiology results, discussion with consultants, and monitoring for potential decompensation. Intervention performed as documented. Discharge Plan Discharge Clinical Impression: Lumbar radiculopathy, Sciatica, Migraine Patient Disposition: Home, Self-Care Instructions: Migraine Headache (ED), Lumbar Radiculopathy (ED) Additional Instructions: Please follow-up with your primary care physician tomorrow. If you have any wo rsening or new symptoms, please return to the emergency room or call 911 Prescriptions: New sphrsdrsan-hjnwcqkribkcw-sabr [Fioricet] 50-300-40 mg capsule 1 cap PO Q8H PRN (Reason: pain) Qty: 9 0RF cyclobenzaprine 10 mg tablet 10 mg PO TID PRN (Reason: muscle spasm) Qty: 10 0RF Rx Instructions: do not drive or go to work after taking this medication, it may make you feel drowsy No Action oxycodone-acetaminophen [Percocet] 5-325 mg tablet 1 tab PO Q6H PRN (Reason: pain) Qty: 20 0RF Rx Instructions: Partial Fill upon patient request. oxycodone 5 mg tablet 5 mg PO Q6H PRN (Reason: pain) Qty: 30 0RF Rx Instructions: Partial Fill upon patient request. cyclobenzaprine 10 mg tablet 10 mg PO TID PRN (Reason: muscle pain or spasm) Qty: 20 0RF ibuprofen 400 mg tablet 400 mg PO Q6H PRN (Reason: pain) Qty: 20 0RF oxycodone 5 mg tablet 5 mg PO Q6H PRN (Reason: pain) Qty: 20 0RF Rx Instructions: Partial Fill upon patient request. oxycodone 5 mg tablet 5 mg PO Q6H PRN (Reason: severe pain (scale score 7-10)) Qty: 12 0RF Rx Instructions: Partial Fill upon patient request. cefuroxime axetil 250 mg tablet 250 mg PO Q12H Qty: 14 0RF oveasaryva-fljxfqxnnpuav-zawj 50-325-40 mg tablet 1 tab PO Q6H PRN (Reason: haeadace) Qty: 20 0RF Print Language: Kyrgyz
[2024-11-03 01:20] VITALS: BP 137/69; PULSE 68; RESP 14; TEMP 36.8; O2SAT 100
[2024-11-03 01:50] VITALS: BP 137/69; PULSE 68; RESP 14; TEMP 36.8; O2SAT 100
== END 2024-11-03 01:51 | disposition home or self-care (01) ==
PROVIDERS: Emergency Provider Emergency Medicine; PCP Physician Assistant Medical
DX: M54.16 Radiculopathy, lumbar region (principal); M54.42 Lumbago with sciatica, left side; G43.909 Migraine, unspecified, not intractable, without status migrainosus; R11.10 Vomiting, unspecified
CPT/HCPCS: 81001; 87086; 87147; 96361; 96374; 96375; 99284; J1100; J1200; J1885; J2765

== ENCOUNTER 2025-02-03 22:12 | Emergency (ER) | payer OTHER, SELFPAY ==
--- NOTE | ~2025-02-03 | XR_ITS ---
CLINICAL HISTORY: fall 3 view left ankle Comparison: CR/SR - XR ANKLE 3 OR MORE VIEWS LEFT - 11/22/23 22:36 EDT Findings: Bony alignment is anatomic. No acute fracture. Ankle mortise is intact. Unchanged plantar calcaneal spur. IMPRESSION: 1. No acute findings. This document has been electronically signed by: Kris Conrad MD on 02/03/2025 23:18:11
[2025-02-03 22:14] VITALS: BP 155/78; PULSE 76; O2SAT 98
[2025-02-03 22:16] VITALS: BP 144/84; PULSE 66; RESP 16; TEMP 36.6; O2SAT 98; BMI 48.3
--- NOTE | 2025-02-03 23:51 | ED_ITS ---
HPI - General Adult General Chief complaint: Extremity Injury, Lower Stated complaint: L ankle injury x1 week & reinjured today Time Seen by Provider: 02/03/25 23:33 Source: patient and EMS Mode of arrival: EMS Limitations: no limitations History of Present Illness ED Provider: RUDY MOTLEY PA-C HPI narrative: 44 yo F presents to the ED today via EMS for evaluation of left ankle pain s/p injury yesterday. Reports left ankle was feeling sore x1 week after prolonged walking at the [place]. Yesterday, she slipped and re-injured the ankle. Believes she inverted the ankle. [place] pain but denies any audible noise upon inversion. Since then, notes increased swelling and pain to the outer ankle with ambulation. She is able to walk despite the discomfort, offloads to other foot. Tried Tylenol at home without much improvement. Denies prior injury or surgeries to the LLE. Denies h/o gout or arthritis to the left ankle. Pt denies numbness/tingling/weakness to the extremity. No CP, SOB, fevers or chills. Related Data Previous Rx's ?Medication ?Instructions ?Recorded oxycodone-acetaminophen 5 mg-325 1 tab PO Q6H PRN pain #20 tabs 03/13/23 mg tablet (Percocet) oxycodone 5 mg tablet 5 mg PO Q6H PRN pain #30 tab s 04/03/23 cyclobenzaprine 10 mg tablet 10 mg PO TID PRN muscle p ain or 08/22/23 spasm #20 tabs ibuprofen 400 mg tablet 400 mg PO Q6H PRN pain #20 t abs 10/02/23 oxycodone 5 mg tablet 5 mg PO Q6H PRN pain #20 tab s 11/23/23 cefuroxime axetil 250 mg tablet 250 mg PO Q12H #14 tab s 11/28/23 oxycodone 5 mg tablet 5 mg PO Q6H PRN severe pain (scale 11/28/23 score 7-10) #12 tabs yvzcsmrtak-xdziubhijbhub-kjpfdqjv 1 tab PO Q6H PRN hae adace #20 tabs 04/07/24 50 mg-325 mg-40 mg tablet ecuifadnzo-rpfnlolutzhmp-uxosnyai 1 cap PO Q8H PRN cuate n #9 caps 11/03/24 50 mg-300 mg-40 mg capsule (Fioricet) cyclobenzaprine 10 mg tablet 10 mg PO TID PRN muscle s pasm #10 11/03/24 tabs cane #1 ea 02/04/25 Allergies Allergy/AdvReac Type Severity Reaction Status Date / Time codeine (CODEINE) Allergy Unknown RASH Verified 02/03/25 22:20 tramadol AdvReac Anxiety Verified 02/03/25 22:20 From VICODIN Allergy Unknown ANXIETY Uncoded 11/02/24 23:07 Review of Systems Review of Systems: Yes all other systems are reviewed and are negative [facility] Past Medical History Attestation statement: The following information was validated with the patient. Source: old records reviewed and nursing notes reviewed Medical History Migraine Social History Social History Alcohol intake: never Advance Directives: No Advance Directives Information Provided: Yes Do you have a plan to hurt others: No Plan Physical Exam ED Vital Signs: Vital Signs - 24 hr 02/03/25 22:16 02/04/25 00:52 Temperature 97.8 F 97.8 F Pulse Rate 66 66 Respiratory Rate 16 16 Blood Pressure 144/84 H 144/84 H Pulse Oximetry 98 98 Oxygen Delivery Method Room Air BMI result Body Mass Index 48.3 hypertensive, vitals otherwise stable. General: Well appearing, in no acute distress. Skin: Warm, dry, intact. No rashes or lesions. Head: Normocephalic, atraumatic. EENT: Hearing is intact b/l. Conjunctiva clear. PERRLA. Cardiac: Chest wall symmetric. RRR. Lungs: Normal respiratory effort without accessory muscle use. CTA bilaterally. Ext: + ttp at the left lateral malleolus with mild surrounding edema, no erythema or deformity. no palpable deformity or crepitus, overlying warmth. pass tito ROM only limited by pain. strength 5/5. cap refill <2 seconds. sensation intact, 2+ pulses. Neuro: AOx3. Normal speech. Currently using wheelchair to ambulate Course Course Course Narrative: X-ray left ankle without fracture Patient has been ankle sprain. Miguel Angel wrap applied in the ED. Offered crutches, patient would prefer cane. Provided paper script for medical supply store. Educated on rice therapy. Patient has remained stable throughout ED visit today. Discussed worrisome signs and symptoms and when to return to the ED. All questions answered at this time. Patient is agreeable with disposition and stable for discharge. Medical Decision Making Medical Decision Making [facility] Narrative: 44 yo F presents to the ED today via EMS for evaluation of left ankle pain s/p injury yesterday. Patient is hypertensive. well appearing. on exam, ttp at the left lateral malleolus with mild surrounding edema, no erythema or deformity. no palpable deformity or crepitus, overlying warmth. passive ROM only limited by pain. strength 5/5. cap refill <2 seconds. sensation intact, 2+ pulses. Differential diagnosis includes ankle sprain/strain, fracture, dislocation, arthritis. Unlikely DVT, Achilles rupture, plantar fasciitis, neurovascular compromise, threat to limb, compartment syndrome. Plan for x-rays and disposition. Differential Diagnosis Differential Diagnoses: The differential diagnosis associated with the presentation includes as above. Admission/Observation not indicated. Independent Interpretation I performed an independent interpretation of an: Plain X-Ray Interpretation: Ankle x-ray without fracture Radiology Impression Discussion of test interpretation with radiology: I have reviewed the radiologist's reading. Radiologist Impression: Date of Service: 02/03/25 Procedure(s): XR ankle LT min 3V Accession Number(s): [id number] cc: Generic ED Physician~ Reason for Exam: fall CLINICAL HISTORY: fall 3 view left ankle Comparison: CR/SR - XR ANKLE 3 OR MORE VIEWS LEFT - 11/22/23 22:36 EDT Findings: Bony alignment is anatomic. No acute fracture. Ankle mortise is intact. Unchanged plantar calcaneal spur. IMPRESSION: 1. No acute findings. This document has been electronically signed by: Kris Conrad MD on 02/03/2025 23:18:11 Independent Historian Clinical information obtained from an independent historian. History obtained from or confirmed by: EMS External Record Review External record reviewed: Inpatient record Prescription Management I considered prescription management with: Pain Medication (Tylenol, Motrin) Social Determinants Patient?s care significantly limited by Social Determinants of Health including: Other Social Determinant of Health Critical Care Time Critical Care Time Critical Care Time: No Discharge Plan Discharge Clinical Impression: Ankle sprain Patient Disposition: Home, Self-Care Instructions: Ankle Sprain (ED) Additional Instructions: You were evaluated in the ED today following an ankle injury. Your x-rays do not demonstrate any fractures. You have an ankle sprain. Utilize RICE therapy. Rest, ice, compress and elevate the ankle. Miguel Angel wrap was applied today. You were offered crutches however with prefer a cane. You have been provided with a paper script. You may take this to any medical supply store. Follow up with PCP as needed. Return with any new or worsening symptoms. In the case of an emergency call 911. Prescriptions: New (DME) cane Device See Rx Instructions .Route Qty: 1 0RF Rx Instructions: As directed No Action oxycodone-acetaminophen [Percocet] 5-325 mg tablet 1 tab PO Q6H PRN (Reason: pain) Qty: 20 0RF Rx Instructions: Partial Fill upon patient request. oxycodone 5 mg tablet 5 mg PO Q6H PRN (Reason: pain) Qty: 30 0RF Rx Instructions: Partial Fill upon patient request. cyclobenzaprine 10 mg tablet 10 mg PO TID PRN (Reason: muscle pain or spasm) Qty: 20 0RF ibuprofen 400 mg tablet 400 mg PO Q6H PRN (Reason: pain) Qty: 20 0RF oxycodone 5 mg tablet 5 mg PO Q6H PRN (Reason: pain) Qty: 20 0RF Rx Instructions: Partial Fill upon patient request. oxycodone 5 mg tablet 5 mg PO Q6H PRN (Reason: severe pain (scale score 7-10)) Qty: 12 0RF Rx Instructions: Partial Fill upon patient request. cefuroxime axetil 250 mg tablet 250 mg PO Q12H Qty: 14 0RF ytizmjsbcs-bhjpqaacnwtbf-iblq 50-325-40 mg tablet 1 tab PO Q6H PRN (Reason: haeadace) Qty: 20 0RF btmtzewqnv-bjwemtvxufosa-iipj [Fioricet] 50-300-40 mg capsule 1 cap PO Q8H PRN (Reason: pain) Qty: 9 0RF cyclobenzaprine 10 mg tablet 10 mg PO TID PRN (Reason: muscle spasm) Qty: 10 0RF Rx Instructions: do not drive or go to work after taking this medication, it may make you feel drowsy Referrals: Physician,Unknown J [Primary Care Provider, Medical] Interventions: ED Discharge Assessment Last Done: 02/04/25 00:52 Discharge Date/Time: 02/04/25 00:53 Print Language: Ukrainian
--- OUTSIDE RECORDS SUMMARY | 2025-02-03 23:58 | XMS_ITS | Clinical Summary ---
Author Organization [facility] Address [address] [place] [address] Care Team Providers Care Synchro Assembler Name Role Phone Divya Fuchs Primary Care Provider [phone] Surgical History Surgery Date Site/Laterality Comments TONSILLECTOMY PROCEDURE: HISTORICAL TONSILLECTOMY WISDOM TOOTH EXTRACTION PROCEDURE: HISTORICAL WISDOM TEETH EXTRACTION Medical History Medical History Date Comments Back pain DX:Back pain Family History Medical History Relation Name Comments Diabetes Maternal Grandmother Relation Name Status Comments Maternal Grandmother Social History Tobacco Use Types Packs/Day Years Used Date Smoking Tobacco: Never Alcohol Use Standard Drinks/Week Comments No 0 (1 standard drink = 0.6 oz pur e alcohol) Comments Unknown Sex and Gender Information Value Date Recorded Sex Assigned at Not on file Legal Sex Female 1:13 PM EST Gender Identity Not on file Sexual Orientation Not on file Obstetrics History Plan of Treatment Health Maintenance Due Date Last Done Comments Breast Cancer Screening 1979 Colorectal Cancer Screening: Colonoscopy 1979 Hepatitis B Vaccines (1 of 3 - 19+ 3-dose series) 10/23/1998 Cervical Cancer Screening: P ap Smear 10/23/2000 HPV Vaccines (1 - 3-dose SCD M series) 10/23/2006 DTaP,Tdap,and Td Vaccines (2 - Td or Tdap) 02/26/2020 02/25/2010 Cholesterol Screening (Lipid Panel) 03/31/2022 HIV Screening 03/31/2022 Hepatitis C Screening 03/31/2022 Social Influencers of Health Screening 03/31/2022 Depression Screening 05/03/2024 COVID-19 Vaccine ( - 2023-2 5 season) 2025 Influenza Vaccine (#1) 2025 RSV Immunization Adult Patie nts (1 - 1-dose 75+ series) 10/23/2054 HIB Vaccines Aged Out No longer eligi ble based on patient's age to complete this topic Hepatitis A Vaccines Aged Out No long er eligible based on patient's age to complete this topic IPV Vaccines Aged Out No longer eligi ble based on patient's age to complete this topic MMR Vaccines Aged Out No longer eligi ble based on patient's age to complete this topic Meningococcal ACWY Vaccine Aged Out N o longer eligible based on patient's age to complete this topic Meningococcal B Vaccine Aged Out No l onger eligible based on patient's age to complete this topic Pneumococcal Vaccine: Pediat rics (0 to 5 Years) and At-Risk Patients (6 to 49 Years) Aged Out No longer eligi ble based on patient's age to complete this topic RSV Immunization Patients Un tony 20 months Aged Out No longer eligible b ased on patient's age to complete this topic Varicella Vaccines Aged Out No longer eligible based on patient's age to complete this topic Care Teams Synchro Assembler Relationship Specialty Start Date End Date Divya Fuchs PA [address] [place] [address] PCP - General Physician C 13 Catapult Operator 01/30/20
--- OUTSIDE RECORDS SUMMARY | 2025-02-03 23:58 | XMS_ITS | Clinical Summary ---
Author Organization [facility] Address [address] [place] [address] Care Team Providers Care Machine Clothing Replacer Name Role Phone Divya Fuchs Primary Care Provider [phone] Allergies Active Allergy Reactions Criticality Noted Date Comments Codeine 02/29/2020 Tramadol 02/29/2020 Hydrocodone-Acetaminophen 02/09/2020 Medications Medication Sig Dispensed Refills Start Date End Date Status carisoprodol (SOMA) 350 MG tablet Take 350 mg by mouth every 8 (eight) hours as needed for muscle spasms. 0 Active rOPINIRole (REQUIP) 0.25 MG tablet Take 0.25 mg by mouth 2 (two) times a day as needed. 0 Active montelukast (SINGULAIR) 10 MG tablet Take 10 mg by mouth daily. 0 Active Active Problems Problem Noted Date Diagnosed Date Back pain 02/29/2020 Anxiety 05/19/2013 Migraine 05/19/2013 Morbid obesity 04/23/2011 Neck pain 03/31/2010 Radiculitis, lumbosacral 03/31/2010 Social History Tobacco Use Types Packs/Day Years Used Date Smoking Tobacco: Never Smokeless Tobacco: Never Alcohol Use Standard Drinks/Week Comments Yes 0 (1 standard drink = 0.6 oz pur e alcohol) rarely Sex and Gender Information Value Date Recorded Sex Assigned at Not on file Gender Identity Not on file Sexual Orientation Not on file Last Filed Vital Signs Vital Sign Reading Time Taken Comments Blood Pressure 119/81 02/29/2020 2:31 PM EDT Pulse 75 02/29/2020 2:31 PM EDT Temperature 36.6 C (97.8 F) 02/29/2020 2:31 PM EDT Respiratory Rate - - Oxygen Saturation 100% 02/29/2020 2:31 PM EDT Inhaled Oxygen Concentration - - Weight 102.1 kg (225 lb) 02/29/2020 2:31 PM EDT Height 165.1 cm (5' 5 ) 02/29/2020 2:31 PM EDT Body Mass Index 37.44 02/29/2020 2:31 PM EDT Plan of Treatment Health Maintenance Due Date Last Done Comments Hepatitis B Vaccines (1 of 3 - 3-dose series) 1979 Hepatitis C Screening 1979 COVID-19 Vaccine (#1) 04/24/1980 Depression Screening 1991 BMI Counseling 10/23/1997 Preventative Health Evaluation 10/23/1997 Cervical Cancer Screening (P ap Smear) 10/23/2000 DTap / Tdap / Td (2 - Td or Tdap) 02/26/2020 010 Colon Cancer Screening (Colonoscopy) 10/23/2024 Influenza Vaccine (#1) 2025 Pneumococcal Vaccine Aged Out No long er eligible based on patient's age to complete this topic RSV Ped < 20 months Aged Out No longe r eligible based on patient's age to complete this topic Care Teams Machine Clothing Replacer Relationship Specialty Start Date End Date Divya Fuchs PA [address] [facility] [address] [facility] [address] [place] [address] PCP - General Physician Online Merchandiser 01/30/20
[2025-02-04 00:52] VITALS: BP 144/84; PULSE 66; RESP 16; TEMP 36.6; O2SAT 98
== END 2025-02-04 00:53 | disposition home or self-care (01) ==
PROVIDERS: Emergency Provider Emergency Medicine
DX: S93.402A Sprain of unspecified ligament of left ankle, initial encounter (principal); W18.49XA Other slipping, tripping and stumbling without falling, initial encounter; Y93.89 Activity, other specified; Y92.89 Other specified places as the place of occurrence of the external cause; Y99.8 Other external cause status
CPT/HCPCS: 73610; 99282; 99283

== ENCOUNTER → 2025-02-03 22:30 | Outpatient (BNV) | payer OTHER, SELFPAY | PROVIDERS: Emergency Provider Emergency Medicine; Visit Provider Radiology Diagnostic Radiology | DX: M25.572 Pain in left ankle and joints of left foot (principal) | CPT/HCPCS: 73610 ==